=== PATIENT | male | born 1945 | race Caucasian/White ===

== ENCOUNTER 2017-08-27 07:16 | Inpatient (IN) | payer OTHER, MEDICARE ==
[~2017-08-27] VITALS: Ht 177.8 cm; Wt 117.8 kg
[2017-08-27] VITALS (8 sets, daily range): BP systolic 95–141; BP diastolic 47–91
[~2017-08-27 07:16] MED LIST: ASCO500C18 PO; DULO60CA63 PO; FURO-151 PO; GABA-531 PO; LEVO100T12 PO; LORA10CA9 PO; METO25TA3 PO; TAMS0.4C32 PO; TYL3 PO; WARF-67 PO
[2017-08-27] MEDS ORDERED: METOPROLOL TARTRATE 1 MG/ML 5ML VIAL IV ONE (07:32)
[2017-08-27 07:40] LABS: BASOPHILS % (AUTO) 0.1 % (0.0-5.0); EOSINOPHILS % (AUTO) 0.3 % (0.0-8.0); HEMATOCRIT 35.1 % (42-54); LYMPHOCYTES % (AUTO) 3.4 % (21.0-51.0); MEAN CORPUSCULAR HEMOGLOBIN 29.7 pg (27.0-33.0); MEAN CORPUSCULAR HGB CONC 33.7 g/dL (32.0-36.0); MEAN CORPUSCULAR VOLUME 88.3 fL (79-99); MONOCYTES % (AUTO) 5.7 % (3.0-13.0); NEUTROPHILS % (AUTO) 90.5 % (40.0-77.0); PLATELET COUNT (AUTO) 249 K/uL (130-400); RED BLOOD CELL COUNT(AUTO) 3.98 MIL/uL (4.50-6.20); RED CELL DISTRIBUTION WIDTH 16.1 % (11.0-15.5); WHITE BLOOD COUNT (AUTO) 20.6 K/uL (4.8-10.8)
[2017-08-27 07:56] LABS: INR 1.39 (0.85-1.15); PARTIAL THROMBOPLASTIN TIME 37.3 SEC (26.3-35.5); PROTHROMBIN TIME 14.5 SEC (9.6-11.6)
[2017-08-27 07:57] LABS: POTASSIUM 3.3 mmol/L (3.5-5.1)
[2017-08-27 08:13] LABS: B-TYPE NATRIURETIC PEPTIDE 144 pg/mL (0-100)
[2017-08-27 08:21] LABS: ALBUMIN 2.5 g/dL (3.5-5.0); TOTAL PROTEIN, SERUM 7.6 g/dL (6.0-8.3)
[2017-08-27] MEDS ORDERED: MEROPENEM 1 GM VIAL ONE (08:22)
[2017-08-27] MEDS ORDERED: SODIUM CHLORIDE 0.9% 1000ML 1,000 ML IV ONE (08:22)
[2017-08-27] MEDS ORDERED: SODIUM CHLORIDE 0.9% 1000ML 1,000 ML IV SCH (12:00)
[2017-08-27] MEDS ORDERED: ONDANSETRON HCL 4 MG/2 ML VIAL IVP PRN (12:45)
[2017-08-27] MEDS ORDERED: NITROGLYCERIN 0.4 MG SL TAB SL PRN (12:45)
[2017-08-27] MEDS ORDERED: CLONIDINE HCL 0.1 MG TABLET PO PRN (12:45)
[2017-08-27] MEDS ORDERED: MORPHINE SULFATE 4 MG/1ML SYG IVP PRN (12:45)
[2017-08-27] MEDS: MEROPENEM 500 MG VIAL IVP SCH ×3 (15:53→20:56)
[2017-08-27] MEDS: DIPHENHYDRAMINE HCL 25 MG CAPSULE PO PRN (15:54)
[2017-08-27] MEDS: INSULIN HUMULIN R 100 UNIT/ML 3ML SQ SCH ×2 (16:30→20:53)
[2017-08-27] MEDS ORDERED: DIPH25TA20 PO (16:56)
[2017-08-27] MEDS ORDERED: MULT-30 PO (16:56)
[2017-08-27] MEDS ORDERED: CICL6.6S8 TP (16:56)
[2017-08-27] MEDS: IPRATROPIUM/ALBUTEROL SULFATE 3 ML SOLUTION IH SCH ×2 (17:08→21:24)
[2017-08-27] MEDS: WARFARIN SODIUM 2 MG TAB PO SCH (17:59)
[2017-08-27 18:46] LABS: HEMATOCRIT 33.8 % (42-54); MEAN CORPUSCULAR HEMOGLOBIN 29.6 pg (27.0-33.0); MEAN CORPUSCULAR HGB CONC 33.7 g/dL (32.0-36.0); MEAN CORPUSCULAR VOLUME 87.7 fL (79-99); PLATELET COUNT (AUTO) 260 K/uL (130-400); RED BLOOD CELL COUNT(AUTO) 3.86 MIL/uL (4.50-6.20); RED CELL DISTRIBUTION WIDTH 15.8 % (11.0-15.5); WHITE BLOOD COUNT (AUTO) 17.8 K/uL (4.8-10.8)
[2017-08-27] MEDS: DULOXETINE HCL 30 MG CAP PO SCH (20:35)
[2017-08-27] MEDS: GABAPENTIN 300 MG CAPSULE PO SCH (20:35)
[2017-08-27] MEDS ORDERED: METOPROLOL TARTRATE 25 MG TAB PO SCH (21:00)
[2017-08-27] MEDS: ACETAMINOPHEN 325 MG TAB PO PRN (23:17)
[2017-08-27 23:52] LABS: ABG BASE EXCESS 0.3 mmol/L (-2.0-3.0); ABG HCO3 22.2 mmol/L (21.0-28.0); ABG OXYGEN SATURATION 97.8 % (95.0-99.0); ABG PCO2 29 mmHg (35-48)
[2017-08-28] VITALS (7 sets, daily range): BP systolic 90–110; BP diastolic 54–64
[2017-08-28 00:34] LABS: CREATINE KINASE MB 2.5 ng/mL (0.5-3.6); MYOGLOBIN 1574 ng/mL (10-92); TROPONIN I < 0.04 ng/mL (0.00-0.06)
[2017-08-28 00:47] LABS: CREATINE KINASE, TOTAL 3523 U/L (21-232)
[2017-08-28] MEDS: IPRATROPIUM 0.5 MG/2.5 ML INH IH SCH ×7 (01:22→22:19)
[2017-08-28] MEDS ORDERED: DiphenhydrAMINE HCL 50 MG/ML VIAL IV PRN (01:45)
[2017-08-28] MEDS ORDERED: LIDOCAINE HCL-MPF 1% 2ML VIAL IVP PRN (01:45)
[2017-08-28] MEDS ORDERED: VANCOMYCIN 1GM+NS 250ML 250 ML IV SCH (01:45)
[2017-08-28] MEDS ORDERED: POTASSIUM CHLORIDE 10% ELIXIR 20 MEQ/15 ML UDCUP PO PRN (01:45)
[2017-08-28] MEDS ORDERED: METHYLPREDNISOLONE SOD SUCC 125MG/2ML VIAL IV SCH (01:45)
[2017-08-28] MEDS ORDERED: FAMOTIDINE/PF 20 MG/2 ML VIAL IV SCH (01:45)
[2017-08-28] MEDS: METOPROLOL TARTRATE 1 MG/ML 5ML VIAL IV SCH ×2 (02:01→22:52)
[2017-08-28] MEDS ORDERED: METHYLPREDNISOLONE SOD SUCC 125MG/2ML VIAL ONE (02:47)
[2017-08-28] MEDS ORDERED: DiphenhydrAMINE HCL 50 MG/ML VIAL ONE (02:47)
[2017-08-28] MEDS ORDERED: VANCOMYCIN 1GM+NS 250ML 250 ML IV ONE (02:59)
[2017-08-28] MEDS ORDERED: FAMOTIDINE/PF 20 MG/2 ML VIAL IV ONE (03:00)
[2017-08-28] MEDS ORDERED: VANCOMYCIN PROTOCOL PER PHARMACY IV SCH (03:45)
[2017-08-28 05:01] LABS: BASOPHILS % (AUTO) 0.1 % (0.0-5.0); EOSINOPHILS % (AUTO) 0.1 % (0.0-8.0); HEMATOCRIT 31.1 % (42-54); LYMPHOCYTES % (AUTO) 3.5 % (21.0-51.0); MEAN CORPUSCULAR HEMOGLOBIN 30.3 pg (27.0-33.0); MEAN CORPUSCULAR HGB CONC 34.5 g/dL (32.0-36.0); MONOCYTES % (AUTO) 4.1 % (3.0-13.0); NEUTROPHILS % (AUTO) 92.2 % (40.0-77.0); PLATELET COUNT (AUTO) 236 K/uL (130-400); RED BLOOD CELL COUNT(AUTO) 3.54 MIL/uL (4.50-6.20); RED CELL DISTRIBUTION WIDTH 15.9 % (11.0-15.5); WHITE BLOOD COUNT (AUTO) 15.3 K/uL (4.8-10.8)
[2017-08-28 05:11] LABS: INR 1.34 (0.85-1.15)
[2017-08-28 05:15] LABS: APPEARANCE,URINE Clear (CLEAR); BILIRUBIN,URINE Negative (NEGATIVE); COLOR,URINE Yellow (YELLOW); GLUCOSE, URINE (UA) Negative (NEGATIVE); KETONES,URINE Trace mg/dL (NEGATIVE); LEUKOCYTE ESTERASE ,URINE Negative (NEGATIVE); NITRATE,URINE Negative (NEGATIVE); OCCULT BLOOD,URINE Large (NEGATIVE); PROTEIN,URINE 300 (NEGATIVE)
[2017-08-28 05:20] LABS: B-TYPE NATRIURETIC PEPTIDE 139 pg/mL (0-100)
[2017-08-28 05:24] LABS: BACTERIA,URINE None Seen /HPF (None Seen); MUCUS,URINE Few LPF (None Seen); SQUAMOUS EPITHELIAL CELL,UR Few /HPF (0-2); WBC,URINE None Seen /HPF (0-1)
[2017-08-28 05:25] LABS: CREATININE 1.5 mg/dL (0.5-1.5); POTASSIUM 3.2 mmol/L (3.5-5.1); THYROID STIMULATING HORMONE 3.85 uIU/mL (0.36-3.74)
[2017-08-28] MEDS: INSULIN HUMULIN R 100 UNIT/ML 3ML SQ SCH ×4 (05:48→22:51)
[2017-08-28] MEDS: LEVOTHYROXINE 100 MCG TABLET PO SCH (06:55)
[2017-08-28] MEDS ORDERED: SODIUM CHLORIDE 0.9% 1000ML 1,000 ML IV SCH (09:04)
[2017-08-28] MEDS: MULTIVITAMIN WITH MINERALS TABLET PO SCH (11:36)
[2017-08-28] MEDS: TAMSULOSIN HCL 0.4 MG CAP.ER.24H PO SCH (11:36)
[2017-08-28] MEDS: GABAPENTIN 300 MG CAPSULE PO SCH ×3 (11:36→22:39)
[2017-08-28] MEDS: LORATADINE 10 MG TABLET PO SCH (11:37)
[2017-08-28] MEDS: DULOXETINE HCL 30 MG CAP PO SCH ×2 (11:37→22:39)
[2017-08-28] MEDS: FUROSEMIDE 40 MG TABLET PO SCH (11:41)
[2017-08-28] MEDS: POTASSIUM CHLORIDE 20 MEQ ERTAB PO PRN ×2 (11:44→16:10)
[2017-08-28] MEDS: METOPROLOL TARTRATE 25 MG TAB PO SCH ×2 (11:45→22:39)
[2017-08-28] MEDS: ENOXAPARIN SODIUM 120 MG/0.8ML SQ SCH (14:50)
[2017-08-28] MEDS: WARFARIN SODIUM 2 MG TAB PO SCH (14:51)
[2017-08-28] MEDS ORDERED: PHARMACY COMMUNICATION MISC SCH (15:00)
[2017-08-28] MEDS ORDERED: COMPOUND PO MISCELLANEOUS 1 EACH MISC MISC PRN (15:15)
[2017-08-28] MEDS: MAG HYDROX/AL HYDROX/SIMETH 30 ML, LIDOCAINE HCL 2% VISCOUS 30 ML, DIPHENHYDRAMINE HCL ... PO PRN ×6 (15:56→22:41)
[2017-08-28] MEDS: VANCOMYCIN 1GM+NS 250ML 250 ML IV SCH (22:40)
[2017-08-28] MEDS: DIPHENHYDRAMINE HCL 25 MG CAPSULE PO PRN (22:45)
[2017-08-29] VITALS (19 sets, daily range): BP systolic 54–120; BP diastolic 46–84
[2017-08-29] MEDS: ENOXAPARIN SODIUM 120 MG/0.8ML SQ SCH ×3 (00:05→22:39)
[2017-08-29] MEDS: IPRATROPIUM 0.5 MG/2.5 ML INH IH SCH ×6 (01:12→21:17)
[2017-08-29 05:32] LABS: HEMATOCRIT 31.6 % (42-54); MEAN CORPUSCULAR HEMOGLOBIN 29.2 pg (27.0-33.0); MEAN CORPUSCULAR HGB CONC 32.7 g/dL (32.0-36.0); MEAN CORPUSCULAR VOLUME 89.2 fL (79-99); NUCLEATED RED BLOOD CELLS 0.2 % (0.0-0.19); PLATELET COUNT (AUTO) 245 K/uL (130-400); RED BLOOD CELL COUNT(AUTO) 3.54 MIL/uL (4.50-6.20); RED CELL DISTRIBUTION WIDTH 16.3 % (11.0-15.5); WHITE BLOOD COUNT (AUTO) 19.2 K/uL (4.8-10.8)
[2017-08-29 05:51] LABS: BAND NEUTROPHILS % (MANUAL) 18 % (0-2); LYMPHOCYTES % (MANUAL) 9 % (22-44); MAN.DIFF COMMENT-IMPRESSION MANUAL DIFFERENTIAL; MONOCYTES % (MANUAL) 11 % (2-9); PLATELET MORPHOLOGY COMMENT ADEQUATE; SEGMENTED NEUTROPHILS % 62 % (40-70)
[2017-08-29 05:54] LABS: CREATININE 1.4 mg/dL (0.5-1.5); MAGNESIUM 2.3 mg/dL (1.80-2.40); PHOSPHORUS 2.5 mg/dL (2.5-4.9); POTASSIUM 4.3 mmol/L (3.5-5.1)
[2017-08-29 06:00] LABS: B-TYPE NATRIURETIC PEPTIDE 240 pg/mL (0-100)
[2017-08-29] MEDS: INSULIN HUMULIN R 100 UNIT/ML 3ML SQ SCH ×4 (06:14→22:51)
[2017-08-29] MEDS: LEVOTHYROXINE 100 MCG TABLET PO SCH (06:35)
[2017-08-29 06:39] LABS: INR 1.8 (0.85-1.15); PARTIAL THROMBOPLASTIN TIME 46.1 SEC (26.3-35.5); PROTHROMBIN TIME 18.7 SEC (9.6-11.6)
[2017-08-29] MEDS: MULTIVITAMIN WITH MINERALS TABLET PO SCH (09:00)
[2017-08-29] MEDS: DULOXETINE HCL 30 MG CAP PO SCH ×2 (09:00→21:09)
[2017-08-29] MEDS: TAMSULOSIN HCL 0.4 MG CAP.ER.24H PO SCH (09:00)
[2017-08-29] MEDS: GABAPENTIN 300 MG CAPSULE PO SCH ×3 (09:00→21:09)
[2017-08-29] MEDS: LORATADINE 10 MG TABLET PO SCH (09:00)
[2017-08-29] MEDS: FUROSEMIDE 40 MG TABLET PO SCH (09:00)
[2017-08-29] MEDS: VANCOMYCIN 1GM+NS 250ML 250 ML IV SCH (10:50)
[2017-08-29] MEDS: METOPROLOL TARTRATE 25 MG TAB PO SCH ×2 (10:50→21:09)
[2017-08-29] MEDS ORDERED: KETAMINE HCL 100 MG/ML 5ML VIAL IJ ONE (13:06)
[2017-08-29] MEDS ORDERED: FENTANYL CITRATE PF 50 MCG/1 ML 2ML VIAL ONE (13:07)
[2017-08-29] MEDS ORDERED: MIDAZOLAM HCL 1 MG/ML 2ML VIAL ONE (13:07)
[2017-08-29] MEDS ORDERED: PROPOFOL 10 MG/ML 20ML VIAL IV ONE (13:08)
[2017-08-29] MEDS ORDERED: BUPIVACAINE/PF 0.5% 30ML VIAL ONE (13:12)
[2017-08-29] MEDS ORDERED: LIDOCAINE HCL 1% 20 ML VIAL ONE (13:12)
[2017-08-29] MEDS ORDERED: SODIUM CHLORIDE 0.9% 1000ML 1,000 ML IV SCH (18:45)
[2017-08-29 18:48] LABS: HEMATOCRIT 28.4 % (42-54)
[2017-08-29 22:35] LABS: HEMATOCRIT 25.7 % (42-54)
[2017-08-29] MEDS: VANCOMYCIN 750MG + NS 250 ML IV SCH ×2 (22:38)
[2017-08-30] MEDS: IPRATROPIUM 0.5 MG/2.5 ML INH IH SCH ×7 (01:21→21:24)
[2017-08-30 03:51] VITALS: BP 108/62
[2017-08-30 04:34] LABS: BASOPHILS % (AUTO) 0.2 % (0.0-5.0); EOSINOPHILS % (AUTO) 0.1 % (0.0-8.0); HEMATOCRIT 22.1 % (42-54); LYMPHOCYTES % (AUTO) 9.5 % (21.0-51.0); MEAN CORPUSCULAR HEMOGLOBIN 30.2 pg (27.0-33.0); MEAN CORPUSCULAR HGB CONC 34.1 g/dL (32.0-36.0); MEAN CORPUSCULAR VOLUME 88.7 fL (79-99); NEUTROPHILS % (AUTO) 84.2 % (40.0-77.0); NUCLEATED RED BLOOD CELLS 0.4 % (0.0-0.19); PLATELET COUNT (AUTO) 261 K/uL (130-400); RED BLOOD CELL COUNT(AUTO) 2.49 MIL/uL (4.50-6.20); RED CELL DISTRIBUTION WIDTH 16.4 % (11.0-15.5); WHITE BLOOD COUNT (AUTO) 25.8 K/uL (4.8-10.8)
[2017-08-30 04:47] LABS: CREATININE 1.1 mg/dL (0.5-1.5); POTASSIUM 3.5 mmol/L (3.5-5.1)
[2017-08-30 04:48] LABS: INR 2.54 (0.85-1.15); PARTIAL THROMBOPLASTIN TIME 51.4 SEC (26.3-35.5); PROTHROMBIN TIME 26.2 SEC (9.6-11.6)
[2017-08-30 05:23] LABS: B-TYPE NATRIURETIC PEPTIDE 147 pg/mL (0-100)
[2017-08-30] MEDS: VANCOMYCIN 750MG + NS 250 ML IV SCH ×6 (06:25→23:32)
[2017-08-30] MEDS: INSULIN HUMULIN R 100 UNIT/ML 3ML SQ SCH ×4 (06:55→21:00)
[2017-08-30 08:00] VITALS: BP 115/74
[2017-08-30] MEDS ORDERED: HALOPERIDOL LACTATE 5 MG/ML VIAL IV PRN (08:15)
[2017-08-30] MEDS ORDERED: HALOPERIDOL LACTATE 5 MG/ML VIAL ONE (08:21)
[2017-08-30 11:33] VITALS: BP 124/54
[2017-08-30] MEDS: GABAPENTIN 300 MG CAPSULE PO SCH ×3 (12:17→23:50)
[2017-08-30] MEDS: DULOXETINE HCL 30 MG CAP PO SCH ×2 (12:17→23:50)
[2017-08-30] MEDS: LORATADINE 10 MG TABLET PO SCH (12:18)
[2017-08-30] MEDS: METOPROLOL TARTRATE 25 MG TAB PO SCH ×2 (12:18→23:50)
[2017-08-30] MEDS: FUROSEMIDE 40 MG TABLET PO SCH (12:18)
[2017-08-30] MEDS: LEVOTHYROXINE 100 MCG TABLET PO SCH (12:18)
[2017-08-30] MEDS: TAMSULOSIN HCL 0.4 MG CAP.ER.24H PO SCH (12:18)
[2017-08-30] MEDS: MULTIVITAMIN WITH MINERALS TABLET PO SCH (12:18)
[2017-08-30 16:00] VITALS: BP 118/59
[2017-08-30] MEDS: WARFARIN SODIUM 2 MG TAB PO SCH ×2 (16:58→16:59)
[2017-08-30 20:00] VITALS: BP 116/68
[2017-08-30 23:30] VITALS: BP 117/55
[2017-08-31 03:39] VITALS: BP 112/56
[2017-08-31 04:32] LABS: INR 2.62 (0.85-1.15); PARTIAL THROMBOPLASTIN TIME 39.7 SEC (26.3-35.5)
[2017-08-31 04:34] LABS: HEMATOCRIT 21.3 % (42-54); MEAN CORPUSCULAR HEMOGLOBIN 29.3 pg (27.0-33.0); MEAN CORPUSCULAR HGB CONC 33.7 g/dL (32.0-36.0); MEAN CORPUSCULAR VOLUME 86.9 fL (79-99); PLATELET COUNT (AUTO) 296 K/uL (130-400); RED BLOOD CELL COUNT(AUTO) 2.45 MIL/uL (4.50-6.20); RED CELL DISTRIBUTION WIDTH 15.7 % (11.0-15.5); WHITE BLOOD COUNT (AUTO) 29.5 K/uL (4.8-10.8)
[2017-08-31 04:36] LABS: BAND NEUTROPHILS % (MANUAL) 20 % (0-2); LYMPHOCYTES % (MANUAL) 16 % (22-44); MAN.DIFF COMMENT-IMPRESSION MANUAL DIFFERENTIAL; MONOCYTES % (MANUAL) 5 % (2-9); SEGMENTED NEUTROPHILS % 59 % (40-70)
[2017-08-31 04:37] LABS: PLATELET MORPHOLOGY COMMENT SNAPPED
[2017-08-31 04:47] LABS: ALBUMIN 1.7 g/dL (3.5-5.0); BILIRUBIN,TOTAL 0.7 mg/dL (0.2-1.0); TOTAL PROTEIN, SERUM 5.9 g/dL (6.0-8.3)
[2017-08-31 04:54] LABS: POTASSIUM 2.9 mmol/L (3.5-5.1)
[2017-08-31] MEDS: POTASSIUM CHLORIDE 20MEQ/100ML 100 ML IV PRN ×2 (05:20→10:11)
[2017-08-31] MEDS: IPRATROPIUM 0.5 MG/2.5 ML INH IH SCH ×5 (06:09→22:27)
[2017-08-31] MEDS: LEVOTHYROXINE 100 MCG TABLET PO SCH (06:44)
[2017-08-31] MEDS: INSULIN HUMULIN R 100 UNIT/ML 3ML SQ SCH ×4 (06:46→21:00)
[2017-08-31] MEDS: ACETAMINOPHEN 325 MG TAB PO PRN (07:06)
[2017-08-31 08:00] VITALS: BP 129/58
[2017-08-31] MEDS: LORATADINE 10 MG TABLET PO SCH (10:07)
[2017-08-31] MEDS: MULTIVITAMIN WITH MINERALS TABLET PO SCH (10:07)
[2017-08-31] MEDS: DULOXETINE HCL 30 MG CAP PO SCH ×2 (10:07→21:57)
[2017-08-31] MEDS: METOPROLOL TARTRATE 25 MG TAB PO SCH ×2 (10:07→21:57)
[2017-08-31] MEDS: GABAPENTIN 300 MG CAPSULE PO SCH ×3 (10:07→21:57)
[2017-08-31] MEDS: FUROSEMIDE 40 MG TABLET PO SCH (10:07)
[2017-08-31] MEDS: TAMSULOSIN HCL 0.4 MG CAP.ER.24H PO SCH (10:07)
[2017-08-31 11:27] VITALS: BP 121/60
[2017-08-31 12:21] LABS: HEMATOCRIT 21.7 % (42-54)
[2017-08-31] MEDS ORDERED: PHARMACY COMMUNICATION MISC SCH (15:00)
[2017-08-31] MEDS ORDERED: MAG HYDROX/AL HYDROX/SIMETH 30 ML, LIDOCAINE HCL 2% VISCOUS 30 ML, DIPHENHYDRAMINE HCL ... PO PRN ×3 (15:30)
[2017-08-31 16:00] VITALS: BP 136/72
[2017-08-31] MEDS: WARFARIN SODIUM 2 MG TAB PO SCH (18:06)
[2017-08-31 19:10] VITALS: BP 114/54
[2017-08-31] MEDS ORDERED: VANCOMYCIN 1.25 GM in SODIUM CHLORIDE 0.9% 250 ML IV SCH (22:00)
[2017-09-01] VITALS (7 sets, daily range): BP systolic 103–132; BP diastolic 56–62
[2017-09-01] MEDS: IPRATROPIUM 0.5 MG/2.5 ML INH IH SCH ×5 (01:11→21:15)
[2017-09-01] MEDS: ACETAMINOPHEN 325 MG TAB PO PRN ×2 (02:01→09:58)
[2017-09-01] MEDS: VANCOMYCIN 750MG + NS 250 ML IV SCH ×6 (06:14→23:58)
[2017-09-01] MEDS: INSULIN HUMULIN R 100 UNIT/ML 3ML SQ SCH ×4 (07:30→21:00)
[2017-09-01] MEDS: LEVOTHYROXINE 100 MCG TABLET PO SCH (08:03)
[2017-09-01] MEDS: TAMSULOSIN HCL 0.4 MG CAP.ER.24H PO SCH (09:51)
[2017-09-01] MEDS: DULOXETINE HCL 30 MG CAP PO SCH (09:51)
[2017-09-01] MEDS: MULTIVITAMIN WITH MINERALS TABLET PO SCH (09:51)
[2017-09-01] MEDS: GABAPENTIN 300 MG CAPSULE PO SCH ×3 (09:51→23:59)
[2017-09-01] MEDS: FUROSEMIDE 40 MG TABLET PO SCH (09:51)
[2017-09-01] MEDS: LORATADINE 10 MG TABLET PO SCH (09:52)
[2017-09-01] MEDS: METOPROLOL TARTRATE 25 MG TAB PO SCH ×2 (09:53→21:00)
[2017-09-01] MEDS ORDERED: PHARMACY COMMUNICATION MISC SCH ×2 (12:15→14:45)
[2017-09-01] MEDS ORDERED: BIOTENE MOISTURIZING SPRAY 44.3ML SPRAY MM PRN (12:30)
[2017-09-01] MEDS: POTASSIUM CHLORIDE 20 MEQ ERTAB PO PRN ×2 (13:03→17:23)
[2017-09-01] MEDS ORDERED: COMPOUND PO MISCELLANEOUS 1 EACH MISC MISC PRN (15:15)
[2017-09-01] MEDS: WARFARIN SODIUM 2 MG TAB PO SCH (17:22)
[2017-09-02] MEDS: ACETAMINOPHEN 325 MG TAB PO PRN
[2017-09-02] MEDS: DULOXETINE HCL 30 MG CAP PO SCH ×3 (00:01→22:01)
[2017-09-02 03:00] VITALS: BP 126/59
[2017-09-02] MEDS: ACETAMINOPHEN-CODEINE 300/30MG TAB PO PRN ×2 (04:39→17:28)
[2017-09-02] MEDS: IPRATROPIUM 0.5 MG/2.5 ML INH IH SCH ×5 (06:00→21:48)
[2017-09-02] MEDS: INSULIN HUMULIN R 100 UNIT/ML 3ML SQ SCH ×4 (07:30→21:00)
[2017-09-02 08:00] VITALS: BP 109/61
[2017-09-02] MEDS: LEVOTHYROXINE 100 MCG TABLET PO SCH (08:14)
[2017-09-02] MEDS: VANCOMYCIN 750MG + NS 250 ML IV SCH ×6 (08:14→22:00)
[2017-09-02] MEDS ORDERED: COMPOUND IV MISC 1 EACH IVSOLN MISC PRN (08:45)
[2017-09-02] MEDS ORDERED: IRON SUCROSE COMPLEX 100 MG in SODIUM CHLORIDE 0.9% 50 ML IV SCH (09:00)
[2017-09-02 09:56] LABS: RETICULOCYTE % (AUTO) 2.99 % (0.42-2.23)
[2017-09-02 10:03] LABS: POTASSIUM 3.5 mmol/L (3.5-5.1)
[2017-09-02 10:04] LABS: HEMATOCRIT 21.4 % (42-54); MEAN CORPUSCULAR HEMOGLOBIN 30.1 pg (27.0-33.0); MEAN CORPUSCULAR HGB CONC 34.2 g/dL (32.0-36.0); NUCLEATED RED BLOOD CELLS 0.1 % (0.0-0.19); PLATELET COUNT (AUTO) 345 K/uL (130-400); RED BLOOD CELL COUNT(AUTO) 2.44 MIL/uL (4.50-6.20); RED CELL DISTRIBUTION WIDTH 16.1 % (11.0-15.5)
[2017-09-02 10:08] LABS: INR 2.48 (0.85-1.15); PARTIAL THROMBOPLASTIN TIME 38.2 SEC (26.3-35.5); PROTHROMBIN TIME 25.6 SEC (9.6-11.6)
[2017-09-02 10:19] LABS: WHITE BLOOD COUNT (AUTO) 33.7 K/uL (4.8-10.8)
[2017-09-02 10:25] LABS: % IRON SATURATION 18.5 % (30-44); FERRITIN 354 ng/mL (30-400); IRON, SERUM 28 mcg/dL (65-175); TOTAL IRON BINDING CAPACITY 151 mcg/dL (250-450)
[2017-09-02 10:42] LABS: BAND NEUTROPHILS % (MANUAL) 7 % (0-2); EOSINOPHILS % (MANUAL) 1 % (1-6); LYMPHOCYTES % (MANUAL) 8 % (22-44); MAN.DIFF COMMENT-IMPRESSION MANUAL DIFFERENTIAL; SEGMENTED NEUTROPHILS % 84 % (40-70)
[2017-09-02 10:44] LABS: PLATELET MORPHOLOGY COMMENT ADEQUATE
[2017-09-02 11:00] VITALS: BP 116/67
[2017-09-02] MEDS: POTASSIUM CHLORIDE 20 MEQ ERTAB PO PRN ×3 (11:43→22:00)
[2017-09-02] MEDS: TAMSULOSIN HCL 0.4 MG CAP.ER.24H PO SCH (11:47)
[2017-09-02] MEDS: METOPROLOL TARTRATE 25 MG TAB PO SCH ×2 (11:47→22:09)
[2017-09-02] MEDS: GABAPENTIN 300 MG CAPSULE PO SCH ×3 (11:47→22:01)
[2017-09-02] MEDS: MULTIVITAMIN WITH MINERALS TABLET PO SCH (11:48)
[2017-09-02] MEDS: FUROSEMIDE 40 MG TABLET PO SCH (11:49)
[2017-09-02] MEDS: LORATADINE 10 MG TABLET PO SCH (11:49)
[2017-09-02] MEDS: WARFARIN SODIUM 2 MG TAB PO SCH (15:32)
[2017-09-02 16:00] VITALS: BP 123/56
[2017-09-02 19:45] VITALS: BP 98/55
[2017-09-02] MEDS: LACTULOSE 20 GM/30 ML UDCUP PO PRN (22:40)
[2017-09-02 23:00] VITALS: BP 108/56
[2017-09-03 03:15] VITALS: BP 116/64
[2017-09-03 04:38] LABS: MEAN CORPUSCULAR HEMOGLOBIN 29.6 pg (27.0-33.0); MEAN CORPUSCULAR HGB CONC 33.7 g/dL (32.0-36.0); MEAN CORPUSCULAR VOLUME 87.6 fL (79-99); NUCLEATED RED BLOOD CELLS 0.2 % (0.0-0.19); PLATELET COUNT (AUTO) 381 K/uL (130-400); RED BLOOD CELL COUNT(AUTO) 2.32 MIL/uL (4.50-6.20); RED CELL DISTRIBUTION WIDTH 16.1 % (11.0-15.5); WHITE BLOOD COUNT (AUTO) 27.6 K/uL (4.8-10.8)
[2017-09-03 04:41] LABS: HEMATOCRIT 20.3 % (42-54)
[2017-09-03 04:42] LABS: CREATININE 0.9 mg/dL (0.5-1.5); POTASSIUM 3.5 mmol/L (3.5-5.1)
[2017-09-03 04:43] LABS: INR 3.04 (0.85-1.15); PARTIAL THROMBOPLASTIN TIME 41.6 SEC (26.3-35.5); PROTHROMBIN TIME 31.2 SEC (9.6-11.6)
[2017-09-03] MEDS: VANCOMYCIN 750MG + NS 250 ML IV SCH ×6 (05:28→21:39)
[2017-09-03] MEDS: INSULIN HUMULIN R 100 UNIT/ML 3ML SQ SCH ×4 (06:00→21:00)
[2017-09-03 06:02] LABS: HEMATOCRIT 21.2 % (42-54)
[2017-09-03] MEDS: LEVOTHYROXINE 100 MCG TABLET PO SCH (06:26)
[2017-09-03] MEDS: IPRATROPIUM 0.5 MG/2.5 ML INH IH SCH ×3 (08:09→21:22)
[2017-09-03] MEDS: POLYETHYLENE GLYCOL 3350 17 GM POWD.PACK PO SCH ×2 (09:00→11:24)
[2017-09-03 10:14] VITALS: BP 108/66
[2017-09-03] MEDS: DULOXETINE HCL 30 MG CAP PO SCH ×2 (11:21→21:34)
[2017-09-03] MEDS: MULTIVITAMIN WITH MINERALS TABLET PO SCH (11:22)
[2017-09-03] MEDS: METOPROLOL TARTRATE 25 MG TAB PO SCH ×2 (11:22→21:34)
[2017-09-03] MEDS: GABAPENTIN 300 MG CAPSULE PO SCH ×3 (11:22→21:34)
[2017-09-03] MEDS: LORATADINE 10 MG TABLET PO SCH (11:23)
[2017-09-03] MEDS: FUROSEMIDE 40 MG TABLET PO SCH (11:23)
[2017-09-03] MEDS: TAMSULOSIN HCL 0.4 MG CAP.ER.24H PO SCH (11:24)
[2017-09-03] MEDS: IRON SUCROSE COMPLEX 100 MG in SODIUM CHLORIDE 0.9% 50 ML IV SCH (11:36)
[2017-09-03 12:00] VITALS: BP 92/56
[2017-09-03 16:00] VITALS: BP 122/64
[2017-09-03] MEDS: ACETAMINOPHEN 325 MG TAB PO PRN (18:10)
[2017-09-03 19:17] VITALS: BP 106/60
[2017-09-03 23:31] VITALS: BP 98/52
[2017-09-04] VITALS: BP 112/55
[2017-09-04 04:21] VITALS: BP 130/59
[2017-09-04 04:40] LABS: HEMATOCRIT 23.7 % (42-54); MEAN CORPUSCULAR HEMOGLOBIN 29.3 pg (27.0-33.0); MEAN CORPUSCULAR HGB CONC 34.4 g/dL (32.0-36.0); MEAN CORPUSCULAR VOLUME 85.1 fL (79-99); PLATELET COUNT (AUTO) 351 K/uL (130-400); RED BLOOD CELL COUNT(AUTO) 2.78 MIL/uL (4.50-6.20); RED CELL DISTRIBUTION WIDTH 16.2 % (11.0-15.5); WHITE BLOOD COUNT (AUTO) 25.2 K/uL (4.8-10.8)
[2017-09-04 04:46] LABS: INR 2.43 (0.85-1.15); PARTIAL THROMBOPLASTIN TIME 42.3 SEC (26.3-35.5); PROTHROMBIN TIME 25.1 SEC (9.6-11.6)
[2017-09-04 04:51] LABS: CREATININE 0.9 mg/dL (0.5-1.5); POTASSIUM 3.2 mmol/L (3.5-5.1)
[2017-09-04] MEDS: IPRATROPIUM 0.5 MG/2.5 ML INH IH SCH ×3 (06:02→22:08)
[2017-09-04] MEDS: VANCOMYCIN 750MG + NS 250 ML IV SCH ×6 (06:09→21:27)
[2017-09-04] MEDS: LEVOTHYROXINE 100 MCG TABLET PO SCH (06:09)
[2017-09-04] MEDS: POTASSIUM CHLORIDE 20 MEQ ERTAB PO PRN ×3 (06:10→12:40)
[2017-09-04] MEDS: INSULIN HUMULIN R 100 UNIT/ML 3ML SQ SCH ×4 (06:10→21:00)
[2017-09-04 07:55] VITALS: BP 119/65
[2017-09-04] MEDS: CICLOPIROX TP SCH ×2 (09:00→21:00)
[2017-09-04] MEDS: POLYETHYLENE GLYCOL 3350 17 GM POWD.PACK PO SCH (10:31)
[2017-09-04] MEDS: ACETAMINOPHEN-CODEINE 300/30MG TAB PO PRN (10:31)
[2017-09-04] MEDS: DULOXETINE HCL 30 MG CAP PO SCH ×2 (10:31→21:20)
[2017-09-04] MEDS: TAMSULOSIN HCL 0.4 MG CAP.ER.24H PO SCH (10:32)
[2017-09-04] MEDS: LORATADINE 10 MG TABLET PO SCH (10:32)
[2017-09-04] MEDS: GABAPENTIN 300 MG CAPSULE PO SCH ×3 (10:32→21:19)
[2017-09-04] MEDS: FUROSEMIDE 40 MG TABLET PO SCH (10:32)
[2017-09-04] MEDS: MULTIVITAMIN WITH MINERALS TABLET PO SCH (10:32)
[2017-09-04] MEDS: METOPROLOL TARTRATE 25 MG TAB PO SCH ×2 (10:33→21:19)
[2017-09-04] MEDS: POTASSIUM CHLORIDE 10 MEQ/TAB.SA PO SCH (10:33)
[2017-09-04 10:56] VITALS: BP 117/53
[2017-09-04] MEDS: MAG HYDROX/AL HYDROX/SIMETH 30 ML, LIDOCAINE HCL 2% VISCOUS 30 ML, DIPHENHYDRAMINE HCL ... PO PRN ×6 (12:39→22:30)
[2017-09-04] MEDS: IRON SUCROSE COMPLEX 100 MG in SODIUM CHLORIDE 0.9% 50 ML IV SCH (12:40)
[2017-09-04 16:00] VITALS: BP 104/72
[2017-09-04] MEDS: WARFARIN SODIUM 2 MG TAB PO SCH (17:06)
[2017-09-04 19:00] VITALS: BP 121/57
[2017-09-05] VITALS (7 sets, daily range): BP systolic 108–126; BP diastolic 55–70
[2017-09-05 04:37] LABS: MEAN CORPUSCULAR HEMOGLOBIN 30.6 pg (27.0-33.0); MEAN CORPUSCULAR HGB CONC 35.4 g/dL (32.0-36.0); MEAN CORPUSCULAR VOLUME 86.6 fL (79-99); PLATELET COUNT (AUTO) 337 K/uL (130-400); RED BLOOD CELL COUNT(AUTO) 2.54 MIL/uL (4.50-6.20); RED CELL DISTRIBUTION WIDTH 16.4 % (11.0-15.5)
[2017-09-05 04:54] LABS: CREATININE 0.9 mg/dL (0.5-1.5); POTASSIUM 3.6 mmol/L (3.5-5.1)
[2017-09-05] MEDS: LEVOTHYROXINE 100 MCG TABLET PO SCH (05:48)
[2017-09-05] MEDS: VANCOMYCIN 750MG + NS 250 ML IV SCH ×4 (05:48→16:02)
[2017-09-05] MEDS: INSULIN HUMULIN R 100 UNIT/ML 3ML SQ SCH ×4 (05:51→21:00)
[2017-09-05] MEDS: IPRATROPIUM 0.5 MG/2.5 ML INH IH SCH ×3 (06:11→21:58)
[2017-09-05] MEDS: CICLOPIROX TP SCH ×2 (09:00→21:00)
[2017-09-05] MEDS: POLYETHYLENE GLYCOL 3350 17 GM POWD.PACK PO SCH (10:21)
[2017-09-05] MEDS: LORATADINE 10 MG TABLET PO SCH (10:22)
[2017-09-05] MEDS: MULTIVITAMIN WITH MINERALS TABLET PO SCH (10:23)
[2017-09-05] MEDS: FUROSEMIDE 40 MG TABLET PO SCH (10:23)
[2017-09-05] MEDS: TAMSULOSIN HCL 0.4 MG CAP.ER.24H PO SCH (10:23)
[2017-09-05] MEDS: GABAPENTIN 300 MG CAPSULE PO SCH ×3 (10:24→21:25)
[2017-09-05] MEDS: POTASSIUM CHLORIDE 10 MEQ/TAB.SA PO SCH (10:24)
[2017-09-05] MEDS: DULOXETINE HCL 30 MG CAP PO SCH ×2 (10:24→21:25)
[2017-09-05] MEDS: METOPROLOL TARTRATE 25 MG TAB PO SCH ×2 (10:25→21:25)
[2017-09-05] MEDS: POTASSIUM CHLORIDE 20 MEQ ERTAB PO PRN (10:25)
[2017-09-05] MEDS: ACETAMINOPHEN-CODEINE 300/30MG TAB PO PRN (10:28)
[2017-09-05] MEDS: MAG HYDROX/AL HYDROX/SIMETH 30 ML, LIDOCAINE HCL 2% VISCOUS 30 ML, DIPHENHYDRAMINE HCL ... PO PRN ×3 (10:31)
[2017-09-05] MEDS: IRON SUCROSE COMPLEX 100 MG in SODIUM CHLORIDE 0.9% 50 ML IV SCH (13:59)
[2017-09-05] MEDS: WARFARIN SODIUM 2 MG TAB PO SCH (16:02)
[2017-09-05] MEDS ORDERED: METOPROLOL TARTRATE 1 MG/ML 5ML VIAL IV SCH (20:00)
[2017-09-05] MEDS: VANCOMYCIN 1.25 GM in SODIUM CHLORIDE 0.9% 250 ML IV SCH (21:25)
[2017-09-06 03:32] VITALS: BP 100/67
[2017-09-06 04:38] LABS: MEAN CORPUSCULAR HEMOGLOBIN 29.3 pg (27.0-33.0); MEAN CORPUSCULAR VOLUME 86.3 fL (79-99); NUCLEATED RED BLOOD CELLS 0.1 % (0.0-0.19); PLATELET COUNT (AUTO) 397 K/uL (130-400); RED BLOOD CELL COUNT(AUTO) 2.66 MIL/uL (4.50-6.20); RED CELL DISTRIBUTION WIDTH 16.2 % (11.0-15.5); WHITE BLOOD COUNT (AUTO) 17.9 K/uL (4.8-10.8)
[2017-09-06 04:42] LABS: INR 3.08 (0.85-1.15); PARTIAL THROMBOPLASTIN TIME 46.4 SEC (26.3-35.5); PROTHROMBIN TIME 31.6 SEC (9.6-11.6)
[2017-09-06 05:01] LABS: CREATININE 0.9 mg/dL (0.5-1.5); POTASSIUM 3.8 mmol/L (3.5-5.1)
[2017-09-06] MEDS: INSULIN HUMULIN R 100 UNIT/ML 3ML SQ SCH ×4 (06:10→21:00)
[2017-09-06] MEDS: LEVOTHYROXINE 100 MCG TABLET PO SCH (06:10)
[2017-09-06] MEDS: IPRATROPIUM 0.5 MG/2.5 ML INH IH SCH ×3 (06:48→22:35)
[2017-09-06 07:00] VITALS: BP 131/63
[2017-09-06] MEDS: CICLOPIROX TP SCH ×2 (09:00→21:00)
[2017-09-06 11:00] VITALS: BP 133/64
[2017-09-06] MEDS ORDERED: COMPOUND IV REFRIGERATED 1 EACH IVSOLN MISC PRN (11:45)
[2017-09-06] MEDS: ACETAMINOPHEN-CODEINE 300/30MG TAB PO PRN (12:20)
[2017-09-06] MEDS: POLYETHYLENE GLYCOL 3350 17 GM POWD.PACK PO SCH (12:21)
[2017-09-06] MEDS: POTASSIUM CHLORIDE 10 MEQ/TAB.SA PO SCH (12:21)
[2017-09-06] MEDS: TAMSULOSIN HCL 0.4 MG CAP.ER.24H PO SCH (12:21)
[2017-09-06] MEDS: DULOXETINE HCL 30 MG CAP PO SCH ×2 (12:22→23:05)
[2017-09-06] MEDS: LORATADINE 10 MG TABLET PO SCH (12:23)
[2017-09-06] MEDS: MULTIVITAMIN WITH MINERALS TABLET PO SCH (12:23)
[2017-09-06] MEDS: FUROSEMIDE 40 MG TABLET PO SCH (12:23)
[2017-09-06] MEDS: METOPROLOL TARTRATE 25 MG TAB PO SCH ×2 (12:25→23:06)
[2017-09-06] MEDS: IRON SUCROSE COMPLEX 100 MG in SODIUM CHLORIDE 0.9% 50 ML IV SCH (12:32)
[2017-09-06] MEDS: GABAPENTIN 300 MG CAPSULE PO SCH ×3 (12:32→23:06)
[2017-09-06] MEDS: VANCOMYCIN 1.25 GM in SODIUM CHLORIDE 0.9% 250 ML IV SCH ×2 (12:36→23:16)
[2017-09-06 14:56] LABS: INR 2.81 (0.85-1.15); PROTHROMBIN TIME 28.9 SEC (9.6-11.6)
[2017-09-06] MEDS ORDERED: PHARMACY COMMUNICATION MISC SCH (15:15)
[2017-09-06 16:00] VITALS: BP 119/63
[2017-09-06] MEDS: WARFARIN SODIUM 2 MG TAB PO SCH (16:00)
[2017-09-06] MEDS: GENTAMICIN SULFATE 140 MG in SODIUM CHLORIDE 0.9% 100 ML IV SCH (18:45)
[2017-09-06 19:00] VITALS: BP 106/63
[2017-09-06] MEDS: LACTULOSE 20 GM/30 ML UDCUP PO PRN (19:01)
[2017-09-07] VITALS (7 sets, daily range): BP systolic 118–137; BP diastolic 58–71
[2017-09-07] MEDS: GENTAMICIN SULFATE 140 MG in SODIUM CHLORIDE 0.9% 100 ML IV SCH ×3 (01:33→17:37)
[2017-09-07 06:22] LABS: INR 2.46 (0.85-1.15); PROTHROMBIN TIME 25.4 SEC (9.6-11.6)
[2017-09-07] MEDS: INSULIN HUMULIN R 100 UNIT/ML 3ML SQ SCH ×4 (06:55→21:00)
[2017-09-07] MEDS: IPRATROPIUM 0.5 MG/2.5 ML INH IH SCH ×3 (06:56→22:24)
[2017-09-07] MEDS: LEVOTHYROXINE 100 MCG TABLET PO SCH (06:57)
[2017-09-07] MEDS: VANCOMYCIN 1.25 GM in SODIUM CHLORIDE 0.9% 250 ML IV SCH ×2 (08:00→21:51)
[2017-09-07] MEDS: DULOXETINE HCL 30 MG CAP PO SCH ×2 (09:05→21:51)
[2017-09-07] MEDS: TAMSULOSIN HCL 0.4 MG CAP.ER.24H PO SCH (09:05)
[2017-09-07] MEDS: POTASSIUM CHLORIDE 10 MEQ/TAB.SA PO SCH (09:05)
[2017-09-07] MEDS: LORATADINE 10 MG TABLET PO SCH (09:06)
[2017-09-07] MEDS: POLYETHYLENE GLYCOL 3350 17 GM POWD.PACK PO SCH (09:06)
[2017-09-07] MEDS: FUROSEMIDE 40 MG TABLET PO SCH (09:06)
[2017-09-07] MEDS: GABAPENTIN 300 MG CAPSULE PO SCH ×3 (09:06→21:51)
[2017-09-07] MEDS: METOPROLOL TARTRATE 25 MG TAB PO SCH ×2 (09:06→21:51)
[2017-09-07] MEDS: MULTIVITAMIN WITH MINERALS TABLET PO SCH (09:06)
[2017-09-07] MEDS: IRON SUCROSE COMPLEX 100 MG in SODIUM CHLORIDE 0.9% 50 ML IV SCH (11:00)
[2017-09-07] MEDS: WARFARIN SODIUM 2 MG TAB PO SCH (16:00)
[2017-09-07] MEDS: CICLOPIROX TP SCH (21:00)
[2017-09-08 04:31] VITALS: BP 141/67
[2017-09-08] MEDS: IPRATROPIUM 0.5 MG/2.5 ML INH IH SCH ×3 (06:00→22:32)
[2017-09-08] MEDS: INSULIN HUMULIN R 100 UNIT/ML 3ML SQ SCH ×4 (06:23→21:00)
[2017-09-08] MEDS: LEVOTHYROXINE 100 MCG TABLET PO SCH (06:25)
[2017-09-08 07:40] LABS: HEMATOCRIT 24.7 % (42-54); MEAN CORPUSCULAR HEMOGLOBIN 30.5 pg (27.0-33.0); MEAN CORPUSCULAR HGB CONC 34.4 g/dL (32.0-36.0); MEAN CORPUSCULAR VOLUME 88.7 fL (79-99); PLATELET COUNT (AUTO) 463 K/uL (130-400); RED BLOOD CELL COUNT(AUTO) 2.78 MIL/uL (4.50-6.20); WHITE BLOOD COUNT (AUTO) 14.7 K/uL (4.8-10.8)
[2017-09-08 07:51] LABS: INR 1.75 (0.85-1.15); PROTHROMBIN TIME 18.2 SEC (9.6-11.6)
[2017-09-08] MEDS: GENTAMICIN SULFATE 140 MG in SODIUM CHLORIDE 0.9% 100 ML IV SCH ×3 (08:00)
[2017-09-08 08:02] LABS: CREATININE 0.8 mg/dL (0.5-1.5); POTASSIUM 3.6 mmol/L (3.5-5.1)
[2017-09-08] MEDS: CICLOPIROX TP SCH ×2 (09:00→21:00)
[2017-09-08 09:26] VITALS: BP 126/62
[2017-09-08] MEDS: FUROSEMIDE 40 MG TABLET PO SCH (11:03)
[2017-09-08] MEDS: TAMSULOSIN HCL 0.4 MG CAP.ER.24H PO SCH (11:03)
[2017-09-08] MEDS: GABAPENTIN 300 MG CAPSULE PO SCH ×3 (11:03→22:22)
[2017-09-08] MEDS: DULOXETINE HCL 30 MG CAP PO SCH ×2 (11:04→22:23)
[2017-09-08] MEDS: POTASSIUM CHLORIDE 10 MEQ/TAB.SA PO SCH (11:04)
[2017-09-08] MEDS: METOPROLOL TARTRATE 25 MG TAB PO SCH ×2 (11:05→22:22)
[2017-09-08] MEDS: LORATADINE 10 MG TABLET PO SCH (11:05)
[2017-09-08] MEDS: MULTIVITAMIN WITH MINERALS TABLET PO SCH (11:05)
[2017-09-08] MEDS: POLYETHYLENE GLYCOL 3350 17 GM POWD.PACK PO SCH (11:21)
[2017-09-08] MEDS: IRON SUCROSE COMPLEX 100 MG in SODIUM CHLORIDE 0.9% 50 ML IV SCH (11:21)
[2017-09-08] MEDS: VANCOMYCIN 1.25 GM in SODIUM CHLORIDE 0.9% 250 ML IV SCH ×2 (11:21→22:24)
[2017-09-08 12:00] VITALS: BP 140/66
[2017-09-08 15:52] VITALS: BP 137/69
[2017-09-08] MEDS ORDERED: WARFARIN SODIUM 5 MG TAB PO SCH (16:00)
[2017-09-08] MEDS: GENTAMICIN 120 MG IN 100ML NS 100 ML IV SCH (16:43)
[2017-09-08 19:10] VITALS: BP 141/91
[2017-09-08 20:00] VITALS: BP 130/59
[2017-09-09] MEDS: GENTAMICIN 120 MG IN 100ML NS 100 ML IV SCH ×2 (00:24→09:41)
[2017-09-09 03:33] VITALS: BP 128/60
[2017-09-09] MEDS: INSULIN HUMULIN R 100 UNIT/ML 3ML SQ SCH ×2 (06:11→11:30)
[2017-09-09] MEDS: IPRATROPIUM 0.5 MG/2.5 ML INH IH SCH ×2 (06:54→14:07)
[2017-09-09 07:32] LABS: INR 2.15 (0.85-1.15); PARTIAL THROMBOPLASTIN TIME 39.4 SEC (26.3-35.5); PROTHROMBIN TIME 22.2 SEC (9.6-11.6)
[2017-09-09 08:00] VITALS: BP 141/61
[2017-09-09] MEDS: ACETAMINOPHEN-CODEINE 300/30MG TAB PO PRN (08:46)
[2017-09-09] MEDS: CICLOPIROX TP SCH (09:00)
[2017-09-09] MEDS: VANCOMYCIN 1.25 GM in SODIUM CHLORIDE 0.9% 250 ML IV SCH (09:41)
[2017-09-09] MEDS: IRON SUCROSE COMPLEX 100 MG in SODIUM CHLORIDE 0.9% 50 ML IV SCH (09:41)
[2017-09-09] MEDS: LORATADINE 10 MG TABLET PO SCH (09:42)
[2017-09-09] MEDS: TAMSULOSIN HCL 0.4 MG CAP.ER.24H PO SCH (09:42)
[2017-09-09] MEDS: DULOXETINE HCL 30 MG CAP PO SCH (09:42)
[2017-09-09] MEDS: FUROSEMIDE 40 MG TABLET PO SCH (09:43)
[2017-09-09] MEDS: POTASSIUM CHLORIDE 10 MEQ/TAB.SA PO SCH (09:43)
[2017-09-09] MEDS: METOPROLOL TARTRATE 25 MG TAB PO SCH (09:43)
[2017-09-09] MEDS: POLYETHYLENE GLYCOL 3350 17 GM POWD.PACK PO SCH (09:44)
[2017-09-09] MEDS: GABAPENTIN 300 MG CAPSULE PO SCH ×2 (09:44→14:00)
[2017-09-09] MEDS: MULTIVITAMIN WITH MINERALS TABLET PO SCH (09:44)
[2017-09-09] MEDS: LEVOTHYROXINE 100 MCG TABLET PO SCH (09:49)
[2017-09-09 11:00] VITALS: BP 125/65
[2017-09-09] MEDS ORDERED: MAG HYDROX/AL HYDROX/SIMETH 30 ML, LIDOCAINE HCL 2% VISCOUS 30 ML, DIPHENHYDRAMINE HCL ... PO PRN ×3 (11:48)
[2017-09-09 16:00] VITALS: BP 118/96
[2017-09-09] MEDS ORDERED: WARFARIN SODIUM 2 MG TAB PO SCH (16:00)
== END 2017-09-09 19:30 | DRG 853 ==
LOC: EDH 07:16 → OBSVTOIN 10:45 → EDHIP 10:45 → 4CH 11:34 → 3BH 08-29 18:52 → 3CH 09-06 04:53
PROVIDERS: ADMIT Family Medicine; ATTEND Family Medicine
PROC: 0JBR0ZZ Excision of Left Foot Subcutaneous Tissue and Fascia, Open Approach (ICD-10-PCS; principal; 2017-08-28)
PROC: 0QBP0ZZ Excision of Left Metatarsal, Open Approach (ICD-10-PCS; 2017-08-28)
PROC: 0Y6N0Z5 Detachment at Left Foot, Complete 2nd Ray, Open Approach (ICD-10-PCS; 2017-08-28)
PROC: 02HV33Z Insertion of Infusion Device into Superior Vena Cava, Percutaneous Approach (ICD-10-PCS; 2017-09-09)
PROC: 30233N1 Transfusion of Nonautologous Red Blood Cells into Peripheral Vein, Percutaneous Approach (ICD-10-PCS; 2017-09-09)
DX: A41.9 Sepsis, unspecified organism (principal); M72.6 Necrotizing fasciitis; G93.40 Encephalopathy, unspecified; N17.9 Acute kidney failure, unspecified; I82.402 Acute embolism and thrombosis of unspecified deep veins of left lower extremity; E11.22 Type 2 diabetes mellitus with diabetic chronic kidney disease; E66.01 Morbid (severe) obesity due to excess calories; L03.116 Cellulitis of left lower limb; E11.52 Type 2 diabetes mellitus with diabetic peripheral angiopathy with gangrene; M62.82 Rhabdomyolysis; L02.612 Cutaneous abscess of left foot; I82.432 Acute embolism and thrombosis of left popliteal vein; M86.9 Osteomyelitis, unspecified; W06.XXXA Fall from bed, initial encounter; E11.42 Type 2 diabetes mellitus with diabetic polyneuropathy; E11.621 Type 2 diabetes mellitus with foot ulcer; L97.529 Non-pressure chronic ulcer of other part of left foot with unspecified severity; E11.69 Type 2 diabetes mellitus with other specified complication; D64.9 Anemia, unspecified; E87.6 Hypokalemia; B95.62 Methicillin resistant Staphylococcus aureus infection as the cause of diseases classified elsewhere; B96.89 Other specified bacterial agents as the cause of diseases classified elsewhere; E03.9 Hypothyroidism, unspecified; E11.622 Type 2 diabetes mellitus with other skin ulcer; E78.5 Hyperlipidemia, unspecified; F32.9 Major depressive disorder, single episode, unspecified; G89.4 Chronic pain syndrome; I12.9 Hypertensive chronic kidney disease with stage 1 through stage 4 chronic kidney disease, or unspecified chronic kidney disease; J44.9 Chronic obstructive pulmonary disease, unspecified; K75.9 Inflammatory liver disease, unspecified; M19.90 Unspecified osteoarthritis, unspecified site; M65.9 Synovitis and tenosynovitis, unspecified; N18.9 Chronic kidney disease, unspecified; N40.0 Benign prostatic hyperplasia without lower urinary tract symptoms; R79.1 Abnormal coagulation profile; S91.332A Puncture wound without foreign body, left foot, initial encounter; Z96.619 Presence of unspecified artificial shoulder joint; Z96.652 Presence of left artificial knee joint; Z60.2 Problems related to living alone; Z74.01 Bed confinement status; Z79.01 Long term (current) use of anticoagulants; Z68.37 Body mass index [BMI] 37.0-37.9, adult; Z86.718 Personal history of other venous thrombosis and embolism; Z89.429 Acquired absence of other toe(s), unspecified side; Y93.89 Activity, other specified; Y92.89 Other specified places as the place of occurrence of the external cause; Y99.8 Other external cause status; Z88.1 Allergy status to other antibiotic agents; Z88.0 Allergy status to penicillin
CPT/HCPCS: 36415; 36430; 36600; 70450; 71045; 72072; 72100; 73030; 73502; 73560; 73630; 73718; 78582; 80048; 80053; 80170; 80202; 81001; 82550; 82553; 82607; 82728; 82746; 82803; 82948; 83605; 83735; 83874; 83880; 84100; 84132; 84443; 84484; 85014; 85018; 85025; 85027; 85610; 85730; 86850; 86900; 86901; 86922; 87040; 87070; 87076; 87077; 87186; 87205; 88305; 88311; 93005; 93306; 93925; 93970; 94640; 94660; 94664; 97039; 99291; A4218; A9540; A9558; C1894; G0390; J1200; J1580; J1630; J1650; J1756; J1815; J2185; J2250; J2270; J2704; J2930; J3010; J3370; J3480; J3490; J7030; P9016; Q0163

== ENCOUNTER 2019-07-18 10:01 | Inpatient (IN) | payer OTHER, MEDICARE ==
[~2019-07-18] VITALS: Ht 180.3 cm; Wt 109.6 kg
[~2019-07-18 10:01] MED LIST changes: -ASCO500C18 PO; +CICL6.6S8 TP; +DIPH25TA20 PO; -DULO60CA63 PO; +DULO60CA64 PO; +MULT-30 PO
[2019-07-18] MEDS ORDERED: SODIUM CHLORIDE 0.9% 1000ML 1,000 ML IV ONE ×2 (10:58→15:13)
[2019-07-18 11:32] LABS: CREATININE 1.5 mg/dL (0.5-1.5); POTASSIUM 3.8 mmol/L (3.5-5.1)
[2019-07-18 11:37] LABS: BASOPHILS % (AUTO) 0.4 % (0.0-5.0); BILIRUBIN,TOTAL 0.2 mg/dL (0.2-1.0); EOSINOPHILS % (AUTO) 2.5 % (0.0-8.0); HEMATOCRIT 35.5 % (42-54); LYMPHOCYTES % (AUTO) 20.9 % (21.0-51.0); MEAN CORPUSCULAR HEMOGLOBIN 25.7 pg (27.0-33.0); MEAN CORPUSCULAR HGB CONC 29.9 g/dL (32.0-36.0); MONOCYTES % (AUTO) 7.4 % (3.0-13.0); NEUTROPHILS % (AUTO) 68.5 % (40.0-77.0); PLATELET COUNT (AUTO) 368 K/uL (130-400); RED BLOOD CELL COUNT(AUTO) 4.13 MIL/uL (4.50-6.20); TOTAL PROTEIN, SERUM 9.7 g/dL (6.0-8.3); WHITE BLOOD COUNT (AUTO) 7.2 K/uL (4.8-10.8)
[2019-07-18] MEDS ORDERED: VANCOMYCIN 1.75 GM in SODIUM CHLORIDE 0.9% 250 ML IV SCH (11:45)
[2019-07-18] MEDS ORDERED: IOHEXOL 350 MG/ML 100ML INFUS..BTL IV ONE (11:47)
[2019-07-18 12:02] LABS: INR 1.25 (0.85-1.15); PARTIAL THROMBOPLASTIN TIME 39.9 SEC (26.3-35.5); PROTHROMBIN TIME 13.4 SEC (9.6-11.6)
[2019-07-18] MEDS ORDERED: CEFTRIAXONE SODIUM 2 GM VIAL ONE (13:48)
[2019-07-18] MEDS ORDERED: ZOSYN 3.375GM+NS 50ML 50 ML IV ONE (15:12)
[2019-07-18] MEDS ORDERED: LIDOCAINE HCL-MPF 1% 2ML VIAL IV PRN (15:15)
[2019-07-18] MEDS ORDERED: DEXTROSE 50%-WATER 50 ML DISP.SYRIN IV PRN (15:15)
[2019-07-18] MEDS ORDERED: ONDANSETRON HCL 4 MG/2 ML VIAL IV PRN (15:15)
[2019-07-18] MEDS ORDERED: GUAIFENESIN-DM 200/20 MG 10 ML PO PRN (15:15)
[2019-07-18] MEDS ORDERED: ACETAMINOPHEN 325 MG TAB PO PRN ×2 (15:15)
[2019-07-18] MEDS ORDERED: POTASSIUM CHLORIDE 10% ELIXIR 20 MEQ/15 ML UDCUP PO PRN (15:15)
[2019-07-18] MEDS ORDERED: NITROGLYCERIN 0.4 MG SL TAB SL PRN (15:15)
[2019-07-18] MEDS ORDERED: LACTULOSE 20 GM/30 ML UDCUP PO PRN (15:15)
[2019-07-18] MEDS ORDERED: POTASSIUM CHLORIDE 20 MEQ ERTAB PO PRN (15:15)
[2019-07-18] MEDS ORDERED: HYDRALAZINE HCL 20 MG/ML VIAL IV PRN (15:15)
[2019-07-18] MEDS ORDERED: POTASSIUM CHLORIDE 20MEQ/100ML 100 ML IV PRN (15:15)
[2019-07-18] MEDS ORDERED: GLUCAGON 1MG KIT 1 MG ML IM PRN (15:15)
[2019-07-18] MEDS ORDERED: COMPOUND IV REFRIGERATED 1 EACH IVSOLN MISC PRN (15:30)
[2019-07-18] MEDS ORDERED: SODIUM CHLORIDE 0.9% 1000ML 1,000 ML IV SCH (15:30)
[2019-07-18] MEDS: INSULIN HUMULIN R 100 UNIT/ML 3ML SQ SCH ×2 (16:30→20:04)
[2019-07-18 17:00] VITALS: BP 121/60
[2019-07-18 19:00] VITALS: BP 127/62
[2019-07-18] MEDS: FAMOTIDINE 20MG TAB 20 MG TAB PO SCH (20:30)
[2019-07-18] MEDS: CLINDAMYCIN 600 MG/D5% WATER 50 ML IV SCH (20:35)
[2019-07-18] MEDS: HEPARIN SODIUM 5000UNIT/ML 1ML VIAL SQ SCH (20:36)
[2019-07-18] MEDS ORDERED: ZOSYN 3.375GM+NS 50ML 50 ML IV SCH (21:00)
[2019-07-18] MEDS ORDERED: PHARMACY COMMUNICATION MISC PRN (21:00)
[2019-07-18] MEDS ORDERED: LINA5TAB PO (21:08)
[2019-07-18] MEDS ORDERED: THIA100T91 PO (21:08)
[2019-07-18] MEDS ORDERED: SULF1TAB42 PO (21:08)
[2019-07-18] MEDS ORDERED: ATOR20TA65 PO (21:08)
[2019-07-18] MEDS ORDERED: LEVO125T11 PO (21:08)
[2019-07-18] MEDS ORDERED: TRAM50TA4 PO (21:08)
[2019-07-18] MEDS ORDERED: ASCO500C18 PO (21:08)
[2019-07-18] MEDS ORDERED: FERR325T22 PO (21:08)
[2019-07-18] MEDS ORDERED: DULO60CA64 PO (21:08)
[2019-07-18] MEDS ORDERED: ACET325T51 PO (21:08)
[2019-07-18] MEDS ORDERED: [UNRECOGNIZED DRUG - CODE] PO (21:08)
[2019-07-18] MEDS ORDERED: RIVA15TA PO (21:08)
[2019-07-18 23:30] VITALS: BP 126/62
[2019-07-19] MEDS: CLINDAMYCIN 600 MG/D5% WATER 50 ML IV SCH ×3 (00:15→12:30)
[2019-07-19] MEDS: SODIUM CHLORIDE 0.9% 1000ML 1,000 ML IV SCH ×3 (01:08→11:08)
[2019-07-19 02:55] LABS: APPEARANCE,URINE Clear (CLEAR); BILIRUBIN,URINE Negative (NEGATIVE); COLOR,URINE Yellow (YELLOW); GLUCOSE, URINE (UA) Negative (NEGATIVE); KETONES,URINE Negative (NEGATIVE); LEUKOCYTE ESTERASE ,URINE Negative (NEGATIVE); NITRATE,URINE Negative (NEGATIVE); OCCULT BLOOD,URINE Negative (NEGATIVE); PROTEIN,URINE Negative (NEGATIVE); UROBILINOGEN,URINE 0.2 mg/dL (0.2-1.0)
--- NOTE | 2019-07-19 03:51 | NUR ---
patient refused vital signs at this time and to bathe.
[2019-07-19] MEDS: DiphenhydrAMINE HCL 50 MG/ML VIAL IV PRN (05:08)
[2019-07-19] MEDS: LEVOTHYROXINE 125 MCG TABLET PO SCH (05:42)
[2019-07-19] MEDS: CHLORDIAZEPOXIDE HCL 25 MG CAP PO PRN ×2 (05:42→23:27)
[2019-07-19 05:48] LABS: HEMATOCRIT 30.7 % (42-54); MEAN CORPUSCULAR HEMOGLOBIN 26.2 pg (27.0-33.0); MEAN CORPUSCULAR HGB CONC 30.3 g/dL (32.0-36.0); MEAN CORPUSCULAR VOLUME 86.5 fL (79-99); PLATELET COUNT (AUTO) 327 K/uL (130-400); RED BLOOD CELL COUNT(AUTO) 3.55 MIL/uL (4.50-6.20); RED CELL DISTRIBUTION WIDTH 16.9 % (11.0-15.5); WHITE BLOOD COUNT (AUTO) 7.6 K/uL (4.8-10.8)
[2019-07-19 06:02] LABS: HEMOGLOBIN A1C 6.9 % (4.0-6.0)
[2019-07-19 06:04] LABS: CREATININE 1.4 mg/dL (0.5-1.5); POTASSIUM 3.9 mmol/L (3.5-5.1)
[2019-07-19 07:30] VITALS: BP 153/55
[2019-07-19] MEDS: INSULIN HUMULIN R 100 UNIT/ML 3ML SQ SCH ×4 (07:30→20:46)
[2019-07-19] MEDS: GABAPENTIN 300 MG CAPSULE PO SCH ×3 (09:00→20:57)
[2019-07-19] MEDS: FUROSEMIDE 40 MG TABLET PO SCH (09:00)
[2019-07-19] MEDS ORDERED: TRAMADOL HCL 50 MG TABLET PO PRN (09:00)
[2019-07-19] MEDS: THIAMINE HCL 100 MG TABLET PO SCH (09:00)
[2019-07-19] MEDS: FOLIC ACID 1 MG TABLET PO SCH (09:03)
[2019-07-19] MEDS: HEPARIN SODIUM 5000UNIT/ML 1ML VIAL SQ SCH ×2 (09:10→20:45)
--- NOTE | 2019-07-19 09:23 | NUR ---
nursing communication order from Hernan Whalen RESEARCH STATISTICIAN to cont. home meds as reconcilled so i have gone threw the list and initiated ones marked to cont. i have let pt take first dose of them from his own supply this am; i have also changed dressing to pt's right hip at site of oozing wound , greenish drainage saturated on dressing; i have informed dr mike via phone of the consult.
[2019-07-19] MEDS: ASCORBIC ACID 500 MG TAB PO SCH (09:55)
[2019-07-19] MEDS: DULOXETINE HCL 30 MG CAP PO SCH ×2 (09:56→20:57)
[2019-07-19 11:00] VITALS: BP 152/63
--- NOTE | 2019-07-19 12:00 | NUR ---
i rounded with dr Bowling as he visited patient; he went over with patient different options available to him in regards to different types of surgical interventions to treat an infected hip prosthesis and non surgical interventions of iv abx and then oral abx treatment; after much discussion pt decided to have the surgical prosthesis removal treatment and then plan on 6 weeks of iv abx at snf; all of pt's questions were answered by dr Bowling and pt stated understanding of his different options; dr Bowling also examined pt's right hip to assess area of abscess, pt has a small open wound that is draining serous cream colored drainage; SUPERVISING NURSE Hernan Whalen was also in the pt's room and she is aware that dr Bowling is requesting medical clearanace for the surgery. will cont to monitor
[2019-07-19] MEDS: VANCOMYCIN 750MG + NS 250 ML IV SCH ×4 (12:30→20:52)
[2019-07-19 16:00] VITALS: BP 131/60
--- NOTE | 2019-07-19 16:35 | NUR ---
cm note met with patient and states resides at home alone, [facility] has no family. uses walker for ambulation, has a bsc, no other dme, has provider 38hrs per week with "shira carlson" , and she transports to md as needed. discussed dc planning, [facility] he is aware he needs to go to snf, and he prefers to go to [facility], and no other facility, does not want to go to [facility]. Choice letter/REJI signed by pt for [facility] Addendum: 07/19/19 at 1653 by LEFTY HAINES CM Amended: Links added.
[2019-07-19] MEDS: CEFTAZIDIME PENTAHYDRATE 1 GM/VIAL IVP SCH ×2 (18:24→20:53)
[2019-07-19 20:00] VITALS: BP 125/58
[2019-07-19] MEDS: ATORVASTATIN CALCIUM 20 MG TABLET PO SCH (20:56)
[2019-07-19] MEDS: TAMSULOSIN HCL 0.4 MG CAP.ER.24H PO SCH (20:56)
[2019-07-19] MEDS: ACETAMINOPHEN EXTRA STRENGTH 500 MG TABLET PO SCH (20:57)
[2019-07-19] MEDS: FAMOTIDINE 20MG TAB 20 MG TAB PO SCH (21:00)
[2019-07-19] MEDS ORDERED: DIPHEN PO SCH (21:00)
[2019-07-19 23:00] VITALS: BP 131/61
[2019-07-20] VITALS (26 sets, daily range): BP systolic 73–148; BP diastolic 36–96
[2019-07-20] MEDS: LEVOTHYROXINE 125 MCG TABLET PO SCH ×2 (05:05→05:07)
[2019-07-20] MEDS: CEFTAZIDIME PENTAHYDRATE 1 GM/VIAL IVP SCH ×2 (05:05→23:45)
[2019-07-20] MEDS: SODIUM CHLORIDE 0.9% 1000ML 1,000 ML IV SCH ×2 (05:08→23:40)
[2019-07-20] MEDS: INSULIN HUMULIN R 100 UNIT/ML 3ML SQ SCH ×3 (05:14→21:00)
--- NOTE | 2019-07-20 05:14 | NUR ---
patient refused an accucheck and to shower before the procedure.
[2019-07-20 06:24] LABS: HEMATOCRIT 33.2 % (42-54); MEAN CORPUSCULAR HEMOGLOBIN 25.6 pg (27.0-33.0); MEAN CORPUSCULAR HGB CONC 29.5 g/dL (32.0-36.0); MEAN CORPUSCULAR VOLUME 86.7 fL (79-99); PLATELET COUNT (AUTO) 338 K/uL (130-400); RED BLOOD CELL COUNT(AUTO) 3.83 MIL/uL (4.50-6.20); RED CELL DISTRIBUTION WIDTH 17.3 % (11.0-15.5); WHITE BLOOD COUNT (AUTO) 7.9 K/uL (4.8-10.8)
[2019-07-20 06:40] LABS: CREATININE 1.5 mg/dL (0.5-1.5); POTASSIUM 4.6 mmol/L (3.5-5.1)
[2019-07-20 06:51] LABS: INR 1.06 (0.85-1.15); PARTIAL THROMBOPLASTIN TIME 31.3 SEC (26.3-35.5); PROTHROMBIN TIME 11.4 SEC (9.6-11.6)
[2019-07-20] MEDS: FOLIC ACID 1 MG TABLET PO SCH (09:00)
[2019-07-20] MEDS: VANCOMYCIN 750MG + NS 250 ML IV SCH ×10 (09:00→23:40)
[2019-07-20] MEDS: GABAPENTIN 300 MG CAPSULE PO SCH ×2 (09:00→23:53)
[2019-07-20] MEDS: THIAMINE HCL 100 MG TABLET PO SCH (09:00)
[2019-07-20] MEDS: MULTIVITAMIN WITH MINERALS TABLET PO SCH (09:00)
[2019-07-20] MEDS: FERROUS SULFATE 325 MG TABLET.DR PO SCH (09:00)
[2019-07-20] MEDS: DULOXETINE HCL 30 MG CAP PO SCH ×2 (09:00→23:54)
[2019-07-20] MEDS: ASCORBIC ACID 500 MG TAB PO SCH (09:00)
[2019-07-20] MEDS: FUROSEMIDE 40 MG TABLET PO SCH (09:00)
[2019-07-20] MEDS: LACTATED RINGERS 1000ML 1,000 ML IV SCH ×2 (11:11→20:50)
--- NOTE | 2019-07-20 12:00 | NUR ---
pre op pt has open wound to rt hip pale in color and draining yellowish drainage, small amt. gauze dressing with medipore tape to site Addendum: 07/20/19 at 1241 by JEAN CLAUDE AYON RN RN Amended: Links added.
[2019-07-20] MEDS ORDERED: SODIUM CHLORIDE 0.9% 1000ML 1,000 ML IV ONE (12:22)
[2019-07-20] MEDS: ACETAMINOPHEN EXTRA STRENGTH 500 MG TABLET PO SCH ×2 (12:25→20:45)
--- NOTE | 2019-07-20 12:30 | NUR ---
CM NOTE/PENDING REFERRAL NEW REFERRAL FOR SNF PER [facility]. PER DR. FLORES, OTHO SURGEON, RECOMMENDING [facility] INSTEAD OF [facility] DUE TO REQUIRES IV ANTIBIOTICS X2 FOR 6 WEEKS. PER NURSE, DR. FLORES TO SPEAK TO PATIENT FIRST BEFORE REFERRAL IS SENT. PENDING DR. FLORES SURGERY AND RECOMMENDATIONS. ADDY BALLESTEROS MAIL TELLER INFORMED.
[2019-07-20] MEDS ORDERED: LIDOCAINE PF 2% 5ML ABBOJECT ONE (13:34)
[2019-07-20] MEDS ORDERED: ROCURONIUM 10MG/1ML SYR 10 MG/ML ML ONE ×3 (13:34→17:27)
[2019-07-20] MEDS ORDERED: MIDAZOLAM HCL 1 MG/ML 2ML VIAL ONE (13:34)
[2019-07-20] MEDS ORDERED: SUCCINYLCHOLINE CHLORIDE 20 MG/ML 10 ML VIAL ONE (13:34)
[2019-07-20] MEDS ORDERED: PROPOFOL 10 MG/ML 20ML VIAL IV ONE (13:34)
[2019-07-20] MEDS ORDERED: FENTANYL CITRATE PF 50 MCG/1 ML 2ML VIAL ONE (13:36)
[2019-07-20] MEDS ORDERED: ROPIVACAINE 0.5% 5MG/ML 30ML IJ ONE (13:46)
[2019-07-20] MEDS ORDERED: VANCOMYCIN HCL 1 GM VIAL ONE ×3 (15:53→19:33)
[2019-07-20] MEDS ORDERED: GLYCOPYRROLATE 1 MG/5 ML SYRINGE ONE (15:59)
[2019-07-20] MEDS: VANCOMYCIN HCL 1 GM VIAL ONE ×2 (16:14→19:33)
[2019-07-20 16:52] LABS: HEMATOCRIT 33.3 % (42-54)
[2019-07-20] MEDS ORDERED: ONDANSETRON HCL 4 MG/2 ML VIAL ONE (20:03)
[2019-07-20] MEDS ORDERED: NEOSTIGMINE 5MG/5ML SYR IV ONE (20:09)
[2019-07-20] MEDS ORDERED: TRAMADOL HCL 50 MG TABLET PO PRN (20:45)
[2019-07-20] MEDS ORDERED: POTASSIUM CHLORIDE 10% ELIXIR 20 MEQ/15 ML UDCUP PO PRN (20:45)
[2019-07-20] MEDS ORDERED: HYDROMORPHONE PCA 10 MG/50 ML 50 ML IV PRN (20:45)
[2019-07-20] MEDS ORDERED: TEMAZEPAM 15 MG CAPSULE PO PRN (20:45)
[2019-07-20] MEDS ORDERED: KETOROLAC TROMETHAMINE 15MG/ML IV PRN (20:45)
[2019-07-20] MEDS ORDERED: POTASSIUM CHLORIDE 20MEQ/100ML 100 ML IV PRN (20:45)
[2019-07-20] MEDS ORDERED: CALCIUM CARBONATE 500 MG TABLET PO PRN (20:45)
[2019-07-20] MEDS ORDERED: ONDANSETRON HCL 4 MG/2 ML VIAL IVP PRN (20:45)
[2019-07-20] MEDS ORDERED: DiphenhydrAMINE HCL 50 MG/ML VIAL IVP PRN (20:45)
[2019-07-20] MEDS ORDERED: LIDOCAINE HCL-MPF 1% 2ML VIAL IV PRN (20:45)
[2019-07-20] MEDS ORDERED: NALOXONE HCL 0.4 MG/1 ML ML IVP PRN (20:45)
[2019-07-20] MEDS ORDERED: ALBUMIN (HUMAN) 5% 250 ML IV ONE (20:54)
[2019-07-20] MEDS: FAMOTIDINE 20MG TAB 20 MG TAB PO SCH (21:00)
[2019-07-20 21:23] LABS: HEMATOCRIT 31.2 % (42-54)
[2019-07-20] MEDS: PREGABALIN 25 MG CAP PO SCH (23:40)
[2019-07-20] MEDS: ATORVASTATIN CALCIUM 20 MG TABLET PO SCH (23:40)
[2019-07-20] MEDS: CELECOXIB 200 MG CAP PO SCH (23:40)
[2019-07-20] MEDS: TAMSULOSIN HCL 0.4 MG CAP.ER.24H PO SCH (23:53)
[2019-07-20] MEDS: OXYCODONE HCL 5 MG TAB PO PRN (23:54)
[2019-07-21] VITALS (9 sets, daily range): BP systolic 100–142; BP diastolic 44–72
--- NOTE | 2019-07-21 00:39 | NUR ---
pt refused incentive spirometry, due to pain Addendum: 07/21/19 at 0040 by BIA SLAUGHTER RT Amended: Links added.
[2019-07-21] MEDS: ACETAMINOPHEN EXTRA STRENGTH 500 MG TABLET PO SCH ×3 (04:45→21:01)
[2019-07-21] MEDS: LEVOTHYROXINE 125 MCG TABLET PO SCH (06:30)
[2019-07-21] MEDS: SODIUM CHLORIDE 0.9% 1000ML 1,000 ML IV SCH ×2 (06:44→16:44)
[2019-07-21 07:18] LABS: HEMATOCRIT 25.6 % (42-54); MEAN CORPUSCULAR HEMOGLOBIN 26.6 pg (27.0-33.0); MEAN CORPUSCULAR HGB CONC 30.1 g/dL (32.0-36.0); MEAN CORPUSCULAR VOLUME 88.6 fL (79-99); PLATELET COUNT (AUTO) 287 K/uL (130-400); RED BLOOD CELL COUNT(AUTO) 2.89 MIL/uL (4.50-6.20); RED CELL DISTRIBUTION WIDTH 17.1 % (11.0-15.5); WHITE BLOOD COUNT (AUTO) 10.3 K/uL (4.8-10.8)
[2019-07-21 07:38] LABS: CREATININE 1.2 mg/dL (0.5-1.5); POTASSIUM 4.2 mmol/L (3.5-5.1)
[2019-07-21] MEDS: OXYCODONE HCL 5 MG TAB PO PRN (08:07)
[2019-07-21] MEDS: VANCOMYCIN 750MG + NS 250 ML IV SCH ×6 (09:00→22:09)
[2019-07-21] MEDS: DULOXETINE HCL 30 MG CAP PO SCH ×2 (09:14→21:01)
[2019-07-21] MEDS: POLYETHYLENE GLYCOL 3350 17 GM POWD.PACK PO SCH (09:14)
[2019-07-21] MEDS: PREGABALIN 25 MG CAP PO SCH ×2 (09:14→20:59)
[2019-07-21] MEDS: CELECOXIB 200 MG CAP PO SCH ×2 (09:14→21:01)
[2019-07-21] MEDS: THIAMINE HCL 100 MG TABLET PO SCH (09:14)
[2019-07-21] MEDS: FOLIC ACID 1 MG TABLET PO SCH (09:15)
[2019-07-21] MEDS: ASCORBIC ACID 500 MG TAB PO SCH (09:15)
[2019-07-21] MEDS: GABAPENTIN 300 MG CAPSULE PO SCH ×3 (09:15→21:01)
[2019-07-21] MEDS: FUROSEMIDE 40 MG TABLET PO SCH (09:15)
[2019-07-21] MEDS: MULTIVITAMIN WITH MINERALS TABLET PO SCH (09:16)
[2019-07-21] MEDS: ENOXAPARIN SODIUM 40 MG/0.4 ML SYRINGE SQ SCH (09:34)
[2019-07-21] MEDS: INSULIN HUMULIN R 100 UNIT/ML 3ML SQ SCH ×3 (11:30→21:00)
--- NOTE | 2019-07-21 11:30 | NUR ---
PRBC/PICC one unit started. witnessed by BOB Solorzano. pt explained the purpose of PRBC and also explained the reason'/purpose of PICC line. verbalized understanding and voiced no concerns or questions.
--- NOTE | 2019-07-21 12:00 | NUR ---
PRBC no adverse reaction from blood transfusion. rate increased to 125 mls/hr. continue to monitor
--- NOTE | 2019-07-21 14:42 | NUR ---
post PRBC completed transfusion of ONE PRBC. pt tolerated well. no signs or symptoms of an adverse reaction. pt is awake alert and oriented. denies any shortness of breath and/or pain.
[2019-07-21] MEDS: CEFTAZIDIME PENTAHYDRATE 1 GM/VIAL IVP SCH ×2 (15:08→22:01)
[2019-07-21] MEDS: TAMSULOSIN HCL 0.4 MG CAP.ER.24H PO SCH (20:59)
[2019-07-21] MEDS: FAMOTIDINE 20MG TAB 20 MG TAB PO SCH (20:59)
[2019-07-21] MEDS: ATORVASTATIN CALCIUM 20 MG TABLET PO SCH (20:59)
[2019-07-22] MEDS: OXYCODONE HCL 5 MG TAB PO PRN ×2 (01:19→08:59)
[2019-07-22] MEDS: FERROUS FUMARATE 324 MG TABLET PO PRN ×2 (01:19→09:04)
--- NOTE | 2019-07-22 01:27 | NUR ---
CARE Assumed care this time,report given per Olvin Anguiano Rn.Hemovac to rt hip,dressing to rt hip changed per Evens Anguiano Rn.
[2019-07-22 03:37] VITALS: BP 111/60
[2019-07-22] MEDS: ACETAMINOPHEN EXTRA STRENGTH 500 MG TABLET PO SCH ×3 (04:13→20:45)
[2019-07-22 06:04] LABS: HEMATOCRIT 24.3 % (42-54); MEAN CORPUSCULAR HEMOGLOBIN 26.3 pg (27.0-33.0); MEAN CORPUSCULAR HGB CONC 29.6 g/dL (32.0-36.0); MEAN CORPUSCULAR VOLUME 88.7 fL (79-99); PLATELET COUNT (AUTO) 223 K/uL (130-400); RED BLOOD CELL COUNT(AUTO) 2.74 MIL/uL (4.50-6.20); RED CELL DISTRIBUTION WIDTH 17.2 % (11.0-15.5); WHITE BLOOD COUNT (AUTO) 9.3 K/uL (4.8-10.8)
[2019-07-22 06:17] LABS: CREATININE 1.7 mg/dL (0.5-1.5); POTASSIUM 3.9 mmol/L (3.5-5.1)
[2019-07-22] MEDS: INSULIN HUMULIN R 100 UNIT/ML 3ML SQ SCH ×4 (06:26→20:16)
[2019-07-22] MEDS: LEVOTHYROXINE 125 MCG TABLET PO SCH (06:27)
[2019-07-22] MEDS: CEFTAZIDIME PENTAHYDRATE 1 GM/VIAL IVP SCH (06:27)
[2019-07-22 08:00] VITALS: BP 99/56
[2019-07-22] MEDS: FOLIC ACID 1 MG TABLET PO SCH (08:53)
[2019-07-22] MEDS: POLYETHYLENE GLYCOL 3350 17 GM POWD.PACK PO SCH (08:53)
[2019-07-22] MEDS: THIAMINE HCL 100 MG TABLET PO SCH (08:53)
[2019-07-22] MEDS: ASCORBIC ACID 500 MG TAB PO SCH (08:54)
[2019-07-22] MEDS: DULOXETINE HCL 30 MG CAP PO SCH ×2 (08:54→20:09)
[2019-07-22] MEDS: GABAPENTIN 300 MG CAPSULE PO SCH ×3 (08:54→20:08)
[2019-07-22] MEDS: FUROSEMIDE 40 MG TABLET PO SCH (08:55)
[2019-07-22] MEDS: CELECOXIB 200 MG CAP PO SCH ×2 (08:55→20:09)
[2019-07-22] MEDS: PREGABALIN 25 MG CAP PO SCH ×2 (08:56→20:08)
[2019-07-22] MEDS: FERROUS SULFATE 325 MG TABLET.DR PO SCH (09:00)
[2019-07-22] MEDS: MULTIVITAMIN WITH MINERALS TABLET PO SCH (09:00)
[2019-07-22] MEDS: ENOXAPARIN SODIUM 40 MG/0.4 ML SYRINGE SQ SCH (09:03)
--- NOTE | 2019-07-22 11:45 | NUR ---
CALLED PHARMACY FOR [address], THEY STATED OUT FOR DELIVERY.
[2019-07-22 12:00] VITALS: BP 110/66
--- NOTE | 2019-07-22 12:18 | NUR ---
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
[2019-07-22] MEDS: VANCOMYCIN 750MG + NS 250 ML IV SCH ×4 (12:30→20:08)
[2019-07-22 16:00] VITALS: BP 119/62
[2019-07-22 19:00] VITALS: BP 96/65
[2019-07-22] MEDS: FAMOTIDINE 20MG TAB 20 MG TAB PO SCH (20:09)
[2019-07-22] MEDS: ATORVASTATIN CALCIUM 20 MG TABLET PO SCH (20:09)
[2019-07-22] MEDS: TAMSULOSIN HCL 0.4 MG CAP.ER.24H PO SCH (20:09)
[2019-07-23] VITALS (7 sets, daily range): BP systolic 111–128; BP diastolic 54–68
[2019-07-23] MEDS: ACETAMINOPHEN EXTRA STRENGTH 500 MG TABLET PO SCH ×3 (04:40→21:47)
[2019-07-23] MEDS: LEVOTHYROXINE 125 MCG TABLET PO SCH (05:42)
[2019-07-23] MEDS: INSULIN HUMULIN R 100 UNIT/ML 3ML SQ SCH ×4 (06:11→21:00)
[2019-07-23 06:13] LABS: BASOPHILS % (AUTO) 0.1 % (0.0-5.0); EOSINOPHILS % (AUTO) 3.4 % (0.0-8.0); HEMATOCRIT 25.4 % (42-54); LYMPHOCYTES % (AUTO) 18.6 % (21.0-51.0); MEAN CORPUSCULAR HGB CONC 30.3 g/dL (32.0-36.0); MEAN CORPUSCULAR VOLUME 89.1 fL (79-99); MONOCYTES % (AUTO) 12.5 % (3.0-13.0); NEUTROPHILS % (AUTO) 64.9 % (40.0-77.0); PLATELET COUNT (AUTO) 209 K/uL (130-400); RED BLOOD CELL COUNT(AUTO) 2.85 MIL/uL (4.50-6.20); RED CELL DISTRIBUTION WIDTH 16.8 % (11.0-15.5); WHITE BLOOD COUNT (AUTO) 8.1 K/uL (4.8-10.8)
[2019-07-23 06:25] LABS: ALBUMIN 2.3 g/dL (3.5-5.0); BILIRUBIN,TOTAL 0.2 mg/dL (0.2-1.0); CREATININE 1.3 mg/dL (0.5-1.5); POTASSIUM 3.5 mmol/L (3.5-5.1); TOTAL PROTEIN, SERUM 6.9 g/dL (6.0-8.3)
[2019-07-23] MEDS: POTASSIUM CHLORIDE 20 MEQ ERTAB PO PRN ×2 (06:38→15:34)
[2019-07-23] MEDS: POLYETHYLENE GLYCOL 3350 17 GM POWD.PACK PO SCH (08:51)
[2019-07-23] MEDS: DULOXETINE HCL 30 MG CAP PO SCH ×2 (08:53→21:48)
[2019-07-23] MEDS: PREGABALIN 25 MG CAP PO SCH ×2 (08:53→21:48)
[2019-07-23] MEDS: THIAMINE HCL 100 MG TABLET PO SCH (08:54)
[2019-07-23] MEDS: CELECOXIB 200 MG CAP PO SCH ×2 (08:54→21:48)
[2019-07-23] MEDS: GABAPENTIN 300 MG CAPSULE PO SCH ×3 (08:54→21:47)
[2019-07-23] MEDS: ASCORBIC ACID 500 MG TAB PO SCH (08:55)
[2019-07-23] MEDS: FUROSEMIDE 40 MG TABLET PO SCH (08:55)
[2019-07-23] MEDS: FOLIC ACID 1 MG TABLET PO SCH (08:56)
[2019-07-23] MEDS: ENOXAPARIN SODIUM 40 MG/0.4 ML SYRINGE SQ SCH (08:59)
[2019-07-23] MEDS: MULTIVITAMIN WITH MINERALS TABLET PO SCH (09:00)
[2019-07-23] MEDS: OXYCODONE HCL 5 MG TAB PO PRN (09:00)
[2019-07-23] MEDS: DiphenhydrAMINE HCL 50 MG/ML VIAL IV PRN ×2 (11:04→18:56)
[2019-07-23] MEDS: VANCOMYCIN 750MG + NS 250 ML IV SCH ×4 (11:04→21:45)
[2019-07-23] MEDS ORDERED: SODIUM CHLORIDE 0.9% 250 ML IV ONE (15:25)
--- NOTE | 2019-07-23 16:23 | NUR ---
Nutrition Intervention: Nutrition screen based on LOS x 5 days. Pt. asleep during RD visit earlier. 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 Pt. NPO for Right Hip Second Look I&D. Labs reviewed(BG 210, HgbA1c 6.9%, Alb 2.3). SR-15, right hip incision. LBM: 07/19/2019. BMI: 33.7, Obesity Grade 1. Recommendations: 1) When diet resumed, rec. 75gm CCD Heart Healthy, 30ml ProMod BID. 2) Continue to monitor pt's nutritional status. 3) Consult RD as nutrition concerns arise. Addendum: 07/23/19 at [address] Amended: Links added.
[2019-07-23] MEDS ORDERED: BISACODYL 10 MG SUPP.RECT RC PRN (20:45)
[2019-07-23] MEDS: ATORVASTATIN CALCIUM 20 MG TABLET PO SCH (21:48)
[2019-07-23] MEDS: FAMOTIDINE 20MG TAB 20 MG TAB PO SCH (21:48)
[2019-07-23] MEDS: TAMSULOSIN HCL 0.4 MG CAP.ER.24H PO SCH (21:48)
[2019-07-24] VITALS (25 sets, daily range): BP systolic 114–149; BP diastolic 52–78
[2019-07-24] MEDS: ACETAMINOPHEN EXTRA STRENGTH 500 MG TABLET PO SCH ×3 (04:45→18:36)
[2019-07-24] MEDS: LEVOTHYROXINE 125 MCG TABLET PO SCH (05:51)
[2019-07-24] MEDS: INSULIN HUMULIN R 100 UNIT/ML 3ML SQ SCH ×4 (05:52→21:00)
[2019-07-24 06:53] LABS: HEMATOCRIT 28.3 % (42-54); MEAN CORPUSCULAR HEMOGLOBIN 27.1 pg (27.0-33.0); MEAN CORPUSCULAR HGB CONC 31.1 g/dL (32.0-36.0); MEAN CORPUSCULAR VOLUME 87.1 fL (79-99); PLATELET COUNT (AUTO) 233 K/uL (130-400); RED BLOOD CELL COUNT(AUTO) 3.25 MIL/uL (4.50-6.20); RED CELL DISTRIBUTION WIDTH 17.1 % (11.0-15.5); WHITE BLOOD COUNT (AUTO) 7.9 K/uL (4.8-10.8)
[2019-07-24 07:11] LABS: CREATININE 1.1 mg/dL (0.5-1.5); POTASSIUM 3.9 mmol/L (3.5-5.1)
[2019-07-24] MEDS: THIAMINE HCL 100 MG TABLET PO SCH (09:00)
[2019-07-24] MEDS: ASCORBIC ACID 500 MG TAB PO SCH (09:00)
[2019-07-24] MEDS: POLYETHYLENE GLYCOL 3350 17 GM POWD.PACK PO SCH (09:00)
[2019-07-24] MEDS: MULTIVITAMIN WITH MINERALS TABLET PO SCH (09:00)
[2019-07-24] MEDS: ENOXAPARIN SODIUM 40 MG/0.4 ML SYRINGE SQ SCH (09:00)
[2019-07-24] MEDS: FERROUS SULFATE 325 MG TABLET.DR PO SCH (09:00)
[2019-07-24] MEDS: FOLIC ACID 1 MG TABLET PO SCH (09:00)
[2019-07-24] MEDS: FUROSEMIDE 40 MG TABLET PO SCH (09:45)
[2019-07-24] MEDS: VANCOMYCIN 750MG + NS 250 ML IV SCH ×4 (09:45→20:57)
[2019-07-24] MEDS: GABAPENTIN 300 MG CAPSULE PO SCH ×3 (09:45→20:53)
[2019-07-24] MEDS: PREGABALIN 25 MG CAP PO SCH ×2 (09:45→20:54)
[2019-07-24] MEDS: CELECOXIB 200 MG CAP PO SCH ×2 (09:45→20:54)
[2019-07-24] MEDS: DULOXETINE HCL 30 MG CAP PO SCH ×2 (09:45→20:53)
[2019-07-24] MEDS ORDERED: VANCOMYCIN HCL 1 GM VIAL ONE ×3 (12:14→14:44)
[2019-07-24] MEDS ORDERED: LIDOCAINE PF 2% 5ML ABBOJECT ONE (12:18)
[2019-07-24] MEDS ORDERED: ROCURONIUM 10MG/1ML SYR 10 MG/ML ML ONE (12:19)
[2019-07-24] MEDS ORDERED: SUCCINYLCHOLINE CHLORIDE 20 MG/ML 10 ML VIAL ONE (12:19)
[2019-07-24] MEDS ORDERED: PROPOFOL 10 MG/ML 20ML VIAL IV ONE (12:19)
[2019-07-24] MEDS ORDERED: MIDAZOLAM HCL 1 MG/ML 2ML VIAL ONE (12:23)
[2019-07-24] MEDS ORDERED: ONDANSETRON HCL 4 MG/2 ML VIAL ONE (12:25)
[2019-07-24] MEDS: NYSTATIN 100000 UNIT/ML 5ML UDCUP PO SCH ×3 (13:00→20:53)
[2019-07-24] MEDS ORDERED: GLYCOPYRROLATE 1 MG/5 ML SYRINGE ONE (15:32)
[2019-07-24] MEDS ORDERED: NEOSTIGMINE 5MG/5ML SYR IV ONE (15:32)
[2019-07-24] MEDS ORDERED: FENTANYL CITRATE PF 50 MCG/1 ML 2ML VIAL ONE (16:10)
[2019-07-24] MEDS: SODIUM CHLORIDE 0.9% 1000ML 1,000 ML IV SCH (16:52)
--- NOTE | 2019-07-24 18:01 | NUR ---
POST OP RETURNED TO FLOOR. EDGARDO/HEMOVAC INTACT TO R SIDE. PT AWAKE AND ORIENTED, VS STABLE. RECEIVED REPORT FROM NELSY ROJAS
[2019-07-24] MEDS: TAMSULOSIN HCL 0.4 MG CAP.ER.24H PO SCH (20:53)
[2019-07-24] MEDS: FAMOTIDINE 20MG TAB 20 MG TAB PO SCH (20:54)
[2019-07-24] MEDS: ATORVASTATIN CALCIUM 20 MG TABLET PO SCH (20:54)
[2019-07-24] MEDS ORDERED: APIXABAN 2.5 MG TABLET PO SCH (21:00)
[2019-07-25] VITALS (8 sets, daily range): BP systolic 91–123; BP diastolic 43–75
[2019-07-25] MEDS: SODIUM CHLORIDE 0.9% 1000ML 1,000 ML IV SCH ×2 (02:52→11:28)
[2019-07-25] MEDS: ACETAMINOPHEN EXTRA STRENGTH 500 MG TABLET PO SCH ×3 (04:52→21:03)
[2019-07-25] MEDS: INSULIN HUMULIN R 100 UNIT/ML 3ML SQ SCH ×5 (05:35→21:00)
[2019-07-25] MEDS: LEVOTHYROXINE 125 MCG TABLET PO SCH (06:19)
[2019-07-25] MEDS: NYSTATIN 100000 UNIT/ML 5ML UDCUP PO SCH ×4 (08:47→21:01)
[2019-07-25] MEDS: APIXABAN 2.5 MG TABLET PO SCH ×2 (08:47→21:01)
[2019-07-25] MEDS: FOLIC ACID 1 MG TABLET PO SCH (08:48)
[2019-07-25] MEDS: DULOXETINE HCL 30 MG CAP PO SCH ×2 (08:48→21:01)
[2019-07-25] MEDS: GABAPENTIN 300 MG CAPSULE PO SCH ×3 (08:48→21:02)
[2019-07-25] MEDS: MULTIVITAMIN WITH MINERALS TABLET PO SCH (08:48)
[2019-07-25] MEDS: CELECOXIB 200 MG CAP PO SCH ×2 (08:48→21:02)
[2019-07-25] MEDS: VANCOMYCIN 750MG + NS 250 ML IV SCH ×4 (08:48→21:08)
[2019-07-25] MEDS: ASCORBIC ACID 500 MG TAB PO SCH (08:48)
[2019-07-25] MEDS: POLYETHYLENE GLYCOL 3350 17 GM POWD.PACK PO SCH ×2 (08:48→08:49)
[2019-07-25] MEDS: FUROSEMIDE 40 MG TABLET PO SCH (08:48)
[2019-07-25] MEDS: PREGABALIN 25 MG CAP PO SCH ×2 (08:48→21:02)
[2019-07-25] MEDS: THIAMINE HCL 100 MG TABLET PO SCH (08:48)
--- NOTE | 2019-07-25 10:00 | NUR ---
cm note call made to trevor lu with [employer] and states that pt is still pending approval. probably not until saturday willl know. updatedprimary nurse.
[2019-07-25] MEDS: TAMSULOSIN HCL 0.4 MG CAP.ER.24H PO SCH (21:01)
[2019-07-25] MEDS: FAMOTIDINE 20MG TAB 20 MG TAB PO SCH (21:01)
[2019-07-25] MEDS: ATORVASTATIN CALCIUM 20 MG TABLET PO SCH (21:02)
[2019-07-26 04:00] VITALS: BP 125/54
[2019-07-26] MEDS: ACETAMINOPHEN EXTRA STRENGTH 500 MG TABLET PO SCH ×3 (04:30→20:07)
[2019-07-26 06:12] LABS: HEMATOCRIT 25.8 % (42-54); MEAN CORPUSCULAR HEMOGLOBIN 27.2 pg (27.0-33.0); MEAN CORPUSCULAR VOLUME 87.8 fL (79-99); PLATELET COUNT (AUTO) 243 K/uL (130-400); RED BLOOD CELL COUNT(AUTO) 2.94 MIL/uL (4.50-6.20); RED CELL DISTRIBUTION WIDTH 17.5 % (11.0-15.5); WHITE BLOOD COUNT (AUTO) 8.3 K/uL (4.8-10.8)
[2019-07-26] MEDS: LEVOTHYROXINE 125 MCG TABLET PO SCH (06:20)
[2019-07-26] MEDS: INSULIN HUMULIN R 100 UNIT/ML 3ML SQ SCH ×4 (06:21→19:55)
[2019-07-26 08:04] VITALS: BP 135/70
[2019-07-26] MEDS: FUROSEMIDE 40 MG TABLET PO SCH (08:45)
[2019-07-26] MEDS: THIAMINE HCL 100 MG TABLET PO SCH (08:45)
[2019-07-26] MEDS: APIXABAN 2.5 MG TABLET PO SCH ×2 (08:45→20:08)
[2019-07-26] MEDS: POLYETHYLENE GLYCOL 3350 17 GM POWD.PACK PO SCH ×2 (08:45→08:48)
[2019-07-26] MEDS: PREGABALIN 25 MG CAP PO SCH ×2 (08:45→20:08)
[2019-07-26] MEDS: FOLIC ACID 1 MG TABLET PO SCH (08:46)
[2019-07-26] MEDS: DULOXETINE HCL 30 MG CAP PO SCH ×2 (08:46→20:09)
[2019-07-26] MEDS: CELECOXIB 200 MG CAP PO SCH ×2 (08:46→20:09)
[2019-07-26] MEDS: GABAPENTIN 300 MG CAPSULE PO SCH ×3 (08:46→20:10)
[2019-07-26] MEDS: OXYCODONE HCL 5 MG TAB PO PRN (08:47)
[2019-07-26] MEDS: NYSTATIN 100000 UNIT/ML 5ML UDCUP PO SCH ×4 (08:48→20:10)
[2019-07-26] MEDS: ASCORBIC ACID 500 MG TAB PO SCH (08:48)
[2019-07-26] MEDS: VANCOMYCIN 750MG + NS 250 ML IV SCH ×4 (09:00→21:57)
[2019-07-26] MEDS: LORATADINE 10 MG TABLET PO SCH (11:18)
[2019-07-26 11:36] VITALS: BP 127/67
[2019-07-26] MEDS: MULTIVITAMIN WITH MINERALS TABLET PO SCH (15:40)
[2019-07-26] MEDS ORDERED: ALTEPLASE 2 MG/VIAL IVCATH SCH (16:00)
[2019-07-26 16:38] VITALS: BP 125/71
[2019-07-26 19:00] VITALS: BP 131/68
[2019-07-26] MEDS: FAMOTIDINE 20MG TAB 20 MG TAB PO SCH (20:08)
[2019-07-26] MEDS: TAMSULOSIN HCL 0.4 MG CAP.ER.24H PO SCH (20:09)
[2019-07-26] MEDS: ATORVASTATIN CALCIUM 20 MG TABLET PO SCH (20:10)
[2019-07-26 23:00] VITALS: BP 124/60
[2019-07-27 03:00] VITALS: BP 141/64
[2019-07-27] MEDS: ACETAMINOPHEN EXTRA STRENGTH 500 MG TABLET PO SCH ×3 (04:33→20:59)
[2019-07-27] MEDS: LEVOTHYROXINE 125 MCG TABLET PO SCH (05:34)
[2019-07-27] MEDS: INSULIN HUMULIN R 100 UNIT/ML 3ML SQ SCH ×4 (06:21→21:00)
[2019-07-27 07:46] VITALS: BP 120/61
[2019-07-27] MEDS: POLYETHYLENE GLYCOL 3350 17 GM POWD.PACK PO SCH ×2 (09:00)
[2019-07-27] MEDS: LORATADINE 10 MG TABLET PO SCH (10:29)
[2019-07-27] MEDS: APIXABAN 2.5 MG TABLET PO SCH ×2 (10:29→20:57)
[2019-07-27] MEDS: ASCORBIC ACID 500 MG TAB PO SCH (10:30)
[2019-07-27] MEDS: DULOXETINE HCL 30 MG CAP PO SCH ×2 (10:30→20:57)
[2019-07-27] MEDS: FOLIC ACID 1 MG TABLET PO SCH (10:30)
[2019-07-27] MEDS: MULTIVITAMIN WITH MINERALS TABLET PO SCH (10:31)
[2019-07-27] MEDS: PREGABALIN 25 MG CAP PO SCH ×2 (10:31→20:57)
[2019-07-27] MEDS: FUROSEMIDE 40 MG TABLET PO SCH (10:31)
--- NOTE | 2019-07-27 10:31 | NUR ---
CM NOTE PER MARIIA JADE, PENDING AUTHORIZATION. UPDATED CLINICALS AND PT NOTES FAXED AND CONFIRMED RECEIVED. WILL FOLLOW UP ACCORDINGLY, PRIMARY NURSE, RONI ROJAS, MADE AWARE.
[2019-07-27] MEDS: THIAMINE HCL 100 MG TABLET PO SCH (10:32)
[2019-07-27 10:47] VITALS: BP 133/53
[2019-07-27] MEDS: VANCOMYCIN 750MG + NS 250 ML IV SCH ×4 (10:50→21:00)
[2019-07-27] MEDS: NYSTATIN 100000 UNIT/ML 5ML UDCUP PO SCH ×4 (11:00→20:58)
[2019-07-27] MEDS: CELECOXIB 200 MG CAP PO SCH ×2 (11:01→20:58)
[2019-07-27] MEDS: GABAPENTIN 300 MG CAPSULE PO SCH ×3 (11:02→20:58)
[2019-07-27] MEDS: FERROUS SULFATE 325 MG TABLET.DR PO SCH (11:02)
[2019-07-27 16:02] VITALS: BP 116/69
[2019-07-27] MEDS ORDERED: BISACODYL 10 MG SUPP.RECT RC PRN (17:00)
--- NOTE | 2019-07-27 19:20 | NUR ---
MD DR FLORES IN TO SEE PT AND REMOVED HEMOVAC FROM SX SITE. NEW ORDERS GIVEN, PLEASE REFER TO CPOE.
[2019-07-27 20:50] VITALS: BP 142/58
[2019-07-27] MEDS: FAMOTIDINE 20MG TAB 20 MG TAB PO SCH (20:57)
[2019-07-27] MEDS: TAMSULOSIN HCL 0.4 MG CAP.ER.24H PO SCH (20:58)
[2019-07-27] MEDS: ATORVASTATIN CALCIUM 20 MG TABLET PO SCH (20:58)
--- NOTE | 2019-07-27 21:00 | NUR ---
MEDS SHIFT ASSESSMENT DONE, PLEASE REFER TO CHART. DUE MEDS ADMINISTERED, TOLERATED WELL. KEPT RESTED AND COMFORTABLE. CALL LIGHT WITHIN REACH. WILL MONITOR PT. Addendum: 07/27/19 at 2255 by CANDI CRUZ RN RN Amended: Links added.
[2019-07-27 23:38] VITALS: BP 105/52
--- NOTE | 2019-07-28 02:00 | NUR ---
ROUNDS PT RESTING WELL, NO DISTRESS NOTED. KEPT UNDISTURBED. WILL CONTINUE TO MONITOR.
[2019-07-28] MEDS: LEVOTHYROXINE 125 MCG TABLET PO SCH (05:30)
[2019-07-28] MEDS: ACETAMINOPHEN EXTRA STRENGTH 500 MG TABLET PO SCH ×2 (05:31→14:20)
--- NOTE | 2019-07-28 05:35 | NUR ---
MEDS PT ALREADY AWAKE, V/S AND BLOOD SUGAR MONITORED, STABLE. DUE MEDS ADMINISTERED, TOLERATED WELL. FOR MORE CARE.
[2019-07-28 05:38] VITALS: BP 139/60
[2019-07-28] MEDS: INSULIN HUMULIN R 100 UNIT/ML 3ML SQ SCH ×3 (05:48→16:30)
[2019-07-28 07:41] VITALS: BP 135/57
[2019-07-28] MEDS: APIXABAN 2.5 MG TABLET PO SCH (08:59)
[2019-07-28] MEDS: POLYETHYLENE GLYCOL 3350 17 GM POWD.PACK PO SCH ×2 (08:59→09:00)
[2019-07-28] MEDS: LORATADINE 10 MG TABLET PO SCH (08:59)
[2019-07-28] MEDS: CELECOXIB 200 MG CAP PO SCH (08:59)
[2019-07-28] MEDS: MULTIVITAMIN WITH MINERALS TABLET PO SCH (09:00)
[2019-07-28] MEDS: FUROSEMIDE 40 MG TABLET PO SCH (09:00)
[2019-07-28] MEDS: NYSTATIN 100000 UNIT/ML 5ML UDCUP PO SCH ×2 (09:00→14:21)
[2019-07-28] MEDS: DULOXETINE HCL 30 MG CAP PO SCH (09:00)
[2019-07-28] MEDS: THIAMINE HCL 100 MG TABLET PO SCH (09:00)
[2019-07-28] MEDS: GABAPENTIN 300 MG CAPSULE PO SCH ×2 (09:00→14:20)
[2019-07-28] MEDS: PREGABALIN 25 MG CAP PO SCH (09:01)
[2019-07-28] MEDS: ASCORBIC ACID 500 MG TAB PO SCH (09:01)
[2019-07-28] MEDS: FOLIC ACID 1 MG TABLET PO SCH (09:01)
--- NOTE | 2019-07-28 09:15 | NUR ---
JUST REC'D ACCEPTANCE FOR [facility] FOR THIS PATIENT Addendum: 07/28/19 at 0918 by LAVERN MADRIGAL RN CM Amended: Links added.
[2019-07-28] MEDS: VANCOMYCIN 750MG + NS 250 ML IV SCH ×2 (10:40)
[2019-07-28 11:07] VITALS: BP 137/56
--- NOTE | 2019-07-28 16:40 | NUR ---
DISCHARGE PATIENT GIVEN DISCHARGE INSTRUCTIONS VIA TEACH BACK. PICC LINE TO SARAI, DOUBLE LUMEN PATENT. DRESSING TO RIGHT HIP INCISION CHANGED AND NEEDS TO BE REMOVED ON 07/31/19. PATIENT TO TRANSFER TO [facility] IN [place] FOR PHYSICAL THERAPY, ANTICOAGULATION AND IV ANTIBIOTICS. REPORT GIVEN TO BOB BERNARDO. ABDUCTION PILLOW IN PLACE. PATIENT TO CONTINUE WITH ELIQUIS BID AND FOLLOW UP WITH DR. FLORES IN 3 WEEKS. EMS PENDING TO TRANSFER PATIENT TO [facility]. PATIENT STABLE AT THIS TIME.
--- NOTE | 2019-07-28 17:45 | NUR ---
EMS ( [facility]) PRESENT TO TRANSPORT PATIENT TO [facility] IN [place].
== END 2019-07-28 17:45 | DRG 464 ==
LOC: EDH 10:01 → EDHIP 13:49 → OBSVTOIN 13:49 → 3AH 16:21
PROVIDERS: ADMIT Internal Medicine; ATTEND Internal Medicine
PROC: 3E0T3BZ Introduction of Anesthetic Agent into Peripheral Nerves and Plexi, Percutaneous Approach (ICD-10-PCS; 2019-07-20)
PROC: 0SP90JZ Removal of Synthetic Substitute from Right Hip Joint, Open Approach (ICD-10-PCS; principal; 2019-07-20 13:45)
PROC: 0SH908Z Insertion of Spacer into Right Hip Joint, Open Approach (ICD-10-PCS; 2019-07-20 13:45)
PROC: 30233N1 Transfusion of Nonautologous Red Blood Cells into Peripheral Vein, Percutaneous Approach (ICD-10-PCS; 2019-07-20 13:45)
PROC: 02HV33Z Insertion of Infusion Device into Superior Vena Cava, Percutaneous Approach (ICD-10-PCS; 2019-07-21)
PROC: B548ZZA Ultrasonography of Superior Vena Cava, Guidance (ICD-10-PCS; 2019-07-21)
PROC: 0SH908Z Insertion of Spacer into Right Hip Joint, Open Approach (ICD-10-PCS; 2019-07-24)
PROC: 0SP908Z Removal of Spacer from Right Hip Joint, Open Approach (ICD-10-PCS; 2019-07-24 13:47)
DX: T84.51XA Infection and inflammatory reaction due to internal right hip prosthesis, initial encounter (principal); E44.0 Moderate protein-calorie malnutrition; E87.2 Acidosis; L02.415 Cutaneous abscess of right lower limb; L03.115 Cellulitis of right lower limb; N17.9 Acute kidney failure, unspecified; D62 Acute posthemorrhagic anemia; E87.0 Hyperosmolality and hypernatremia; M86.9 Osteomyelitis, unspecified; E03.9 Hypothyroidism, unspecified; E11.22 Type 2 diabetes mellitus with diabetic chronic kidney disease; N18.9 Chronic kidney disease, unspecified; I12.9 Hypertensive chronic kidney disease with stage 1 through stage 4 chronic kidney disease, or unspecified chronic kidney disease; F10.20 Alcohol dependence, uncomplicated; M19.90 Unspecified osteoarthritis, unspecified site; E11.69 Type 2 diabetes mellitus with other specified complication; R29.6 Repeated falls; E66.01 Morbid (severe) obesity due to excess calories; Y83.1 Surgical operation with implant of artificial internal device as the cause of abnormal reaction of the patient, or of later complication, without mention of misadventure at the time of the procedure; Z96.612 Presence of left artificial shoulder joint; Z96.611 Presence of right artificial shoulder joint; Z96.643 Presence of artificial hip joint, bilateral; Z96.652 Presence of left artificial knee joint; Z68.33 Body mass index [BMI] 33.0-33.9, adult; Z89.422 Acquired absence of other left toe(s); Z87.891 Personal history of nicotine dependence; Z79.01 Long term (current) use of anticoagulants; Z79.84 Long term (current) use of oral hypoglycemic drugs; Z79.899 Other long term (current) drug therapy; Z86.14 Personal history of Methicillin resistant Staphylococcus aureus infection; Z88.0 Allergy status to penicillin; Z88.8 Allergy status to other drugs, medicaments and biological substances; Z80.3 Family history of malignant neoplasm of breast; Z82.0 Family history of epilepsy and other diseases of the nervous system; Z82.49 Family history of ischemic heart disease and other diseases of the circulatory system; Z86.718 Personal history of other venous thrombosis and embolism
CPT/HCPCS: 36415; 36430; 71045; 72193; 73502; 73503; 80048; 80053; 80202; 81003; 82948; 83036; 83605; 85014; 85018; 85025; 85027; 85610; 85651; 85730; 86140; 86850; 86900; 86901; 86922; 87040; 87070; 87076; 87077; 87186; 87205; 88300; 88304; 93005; 97039; A6250; C1894; G0378; J0330; J0696; J0713; J1200; J1644; J1650; J1815; J1885; J2001; J2250; J2405; J2543; J2704; J2710; J2795; J2997; J3010; J3370; J3490; J7030; J7050; J7120; P9016; P9045; Q0163; Q9967

== ENCOUNTER 2019-09-06 08:52 | Inpatient (IN) | payer OTHER, MEDICARE ==
[~2019-09-06] VITALS: Ht 180.3 cm; Wt 112.5 kg
[~2019-09-06 08:52] MED LIST changes: +ACET325T51 PO; +ASCO500C18 PO; +ATOR20TA65 PO; -CICL6.6S8 TP; -DIPH25TA20 PO; +FERR325T22 PO; -LEVO100T12 PO; +LEVO125T11 PO; -LORA10CA9 PO; -METO25TA3 PO; +THIA100T91 PO; +TRAM50TA4 PO; -TYL3 PO; -WARF-67 PO; +[UNRECOGNIZED DRUG - CODE] PO
[2019-09-06 10:05] VITALS: BP 134/54
[2019-09-06] MEDS ORDERED: GUAI100S13 PO (10:26)
[2019-09-06] MEDS ORDERED: ASCO500T10 PO (10:26)
[2019-09-06] MEDS ORDERED: CELE-84 PO (10:26)
[2019-09-06] MEDS ORDERED: LACT10SO9 PO (10:26)
[2019-09-06] MEDS ORDERED: BISA10SU11 RC (10:26)
[2019-09-06] MEDS ORDERED: FOLI1 PO (10:26)
[2019-09-06] MEDS ORDERED: ACET-3194 PO (10:26)
[2019-09-06] MEDS ORDERED: CALC-125 PO (10:26)
[2019-09-06] MEDS ORDERED: APIX2.5T PO (10:26)
[2019-09-06] MEDS ORDERED: LORA10TA7 PO (10:27)
[2019-09-06] MEDS ORDERED: TRAM50TA4 PO (10:27)
[2019-09-06] MEDS ORDERED: NITR0.4T50 SL (10:27)
[2019-09-06] MEDS ORDERED: MELA5CAP PO (10:27)
[2019-09-06] MEDS ORDERED: PREG150C PO (10:27)
[2019-09-06] MEDS ORDERED: POLY17PO4 PO (10:27)
[2019-09-06] MEDS ORDERED: TRAM100T40 PO (10:27)
[2019-09-06 10:57] LABS: BASOPHILS % (AUTO) 0.2 % (0.0-5.0); EOSINOPHILS % (AUTO) 2.3 % (0.0-8.0); HEMATOCRIT 29.6 % (42-54); LYMPHOCYTES % (AUTO) 10.5 % (21.0-51.0); MEAN CORPUSCULAR HEMOGLOBIN 25.5 pg (27.0-33.0); MEAN CORPUSCULAR HGB CONC 29.7 g/dL (32.0-36.0); MEAN CORPUSCULAR VOLUME 85.8 fL (79-99); MONOCYTES % (AUTO) 9.3 % (3.0-13.0); NEUTROPHILS % (AUTO) 77.4 % (40.0-77.0); PLATELET COUNT (AUTO) 315 K/uL (130-400); RED BLOOD CELL COUNT(AUTO) 3.45 MIL/uL (4.50-6.20); RED CELL DISTRIBUTION WIDTH 16.9 % (11.0-15.5); WHITE BLOOD COUNT (AUTO) 9.2 K/uL (4.8-10.8)
[2019-09-06 11:21] LABS: CREATININE 1.3 mg/dL (0.5-1.5); POTASSIUM 4.1 mmol/L (3.5-5.1)
[2019-09-06 11:24] LABS: INR 1.02 (0.85-1.15)
[2019-09-06] MEDS ORDERED: VANCOMYCIN PROTOCOL PER PHARMACY IV SCH (11:45)
[2019-09-06] MEDS ORDERED: NITROGLYCERIN 0.4 MG SL TAB SL SCH (12:00)
[2019-09-06] MEDS ORDERED: ACETAMINOPHEN EXTENDED RELEASE 650 MG TABLET PO PRN (12:00)
[2019-09-06] MEDS ORDERED: COMPOUND IV REFRIGERATED 1 EACH IVSOLN MISC PRN (12:00)
[2019-09-06] MEDS ORDERED: BISACODYL 10 MG SUPP.RECT RC PRN (12:00)
[2019-09-06] MEDS ORDERED: LACTULOSE 20 GM/30 ML UDCUP PO PRN (12:00)
[2019-09-06] MEDS ORDERED: GUAIFENESIN SUGAR-FREE 100 MG/5 ML UDCUP PO PRN (12:00)
[2019-09-06] MEDS ORDERED: TRAMADOL HCL 50 MG TABLET PO PRN (12:00)
[2019-09-06] MEDS: VANCOMYCIN 1.5 GM in SODIUM CHLORIDE 0.9% 250 ML IV SCH ×2 (12:15→23:22)
[2019-09-06 16:15] VITALS: BP 126/57
[2019-09-06 19:09] VITALS: BP 116/55
[2019-09-06] MEDS: ATORVASTATIN CALCIUM 20 MG TABLET PO SCH (20:06)
[2019-09-06] MEDS: CALCIUM CARBONATE 500 MG TABLET PO SCH (20:07)
[2019-09-06] MEDS: PREGABALIN 75 MG CAPSULE PO SCH (20:07)
[2019-09-06] MEDS: DULOXETINE HCL 30 MG CAP PO SCH (20:07)
[2019-09-06] MEDS: CELECOXIB 200 MG CAP PO SCH (20:07)
[2019-09-06] MEDS: TRAMADOL HCL 50 MG TABLET PO PRN (20:11)
[2019-09-06] MEDS ORDERED: DIPHENHYDRAMINE HCL 25 MG CAPSULE PO PRN (20:15)
[2019-09-06] MEDS ORDERED: DEXTROSE 50%-WATER 50 ML DISP.SYRIN IV PRN (22:15)
[2019-09-06] MEDS ORDERED: GLUCAGON 1MG KIT 1 MG ML IM PRN (22:15)
[2019-09-06 23:23] VITALS: BP 119/56
[2019-09-06] MEDS: SODIUM CHLORIDE 0.9% 1000ML 1,000 ML IV SCH (23:39)
[2019-09-07] VITALS (21 sets, daily range): BP systolic 97–139; BP diastolic 36–67
[2019-09-07] MEDS ORDERED: HYDROMORPHONE HCL 2 MG/ML VIAL ONE (01:51)
[2019-09-07] MEDS: HYDROMORPHONE HCL 2 MG/ML VIAL IVP PRN ×4 (03:08→22:49)
[2019-09-07 04:40] LABS: HEMATOCRIT 28.4 % (42-54); MEAN CORPUSCULAR HEMOGLOBIN 25.5 pg (27.0-33.0); MEAN CORPUSCULAR HGB CONC 29.6 g/dL (32.0-36.0); MEAN CORPUSCULAR VOLUME 86.1 fL (79-99); RED BLOOD CELL COUNT(AUTO) 3.3 MIL/uL (4.50-6.20); RED CELL DISTRIBUTION WIDTH 16.9 % (11.0-15.5); WHITE BLOOD COUNT (AUTO) 6.8 K/uL (4.8-10.8)
[2019-09-07 04:49] LABS: CREATININE 1.3 mg/dL (0.5-1.5); CRP QUANTITATIVE 85.9 mg/L (0.00-9.0); POTASSIUM 3.7 mmol/L (3.5-5.1)
[2019-09-07] MEDS: INSULIN HUMULIN R 100 UNIT/ML 3ML SQ SCH ×3 (05:29→16:30)
[2019-09-07] MEDS ORDERED: CEFAZOLIN SODIUM 1 GM VIAL IVP PRN (06:00)
[2019-09-07] MEDS ORDERED: TRANEXAMIC ACID 1000MG/10ML IV SCH (06:00)
[2019-09-07] MEDS ORDERED: VANCOMYCIN 1GM+NS 250ML 250 ML IV SCH (06:00)
[2019-09-07] MEDS: LEVOTHYROXINE 125 MCG TABLET PO SCH (06:05)
[2019-09-07] MEDS: CELECOXIB 200 MG CAP PO SCH ×2 (09:00→22:48)
[2019-09-07] MEDS: FOLIC ACID 1 MG TABLET PO SCH (09:00)
[2019-09-07] MEDS: FUROSEMIDE 40 MG TABLET PO SCH (09:00)
[2019-09-07] MEDS: DULOXETINE HCL 30 MG CAP PO SCH ×2 (09:00→22:48)
[2019-09-07] MEDS: MULTIVITAMIN WITH MINERALS TABLET PO SCH (09:00)
[2019-09-07] MEDS: PREGABALIN 75 MG CAPSULE PO SCH ×2 (09:00→22:48)
[2019-09-07] MEDS: THIAMINE HCL 100 MG TABLET PO SCH (09:00)
[2019-09-07] MEDS: POLYETHYLENE GLYCOL 3350 17 GM POWD.PACK PO SCH (09:00)
[2019-09-07] MEDS ORDERED: TAMSULOSIN HCL 0.4 MG CAP.ER.24H PO SCH (09:00)
[2019-09-07] MEDS: ASCORBIC ACID 500 MG TAB PO SCH (09:00)
[2019-09-07] MEDS: FERROUS SULFATE 325 MG TABLET.DR PO SCH (09:00)
[2019-09-07] MEDS: CALCIUM CARBONATE 500 MG TABLET PO SCH (09:00)
[2019-09-07] MEDS: LORATADINE 10 MG TABLET PO SCH (09:00)
[2019-09-07] MEDS: VANCOMYCIN 1.5 GM in SODIUM CHLORIDE 0.9% 250 ML IV SCH (12:00)
[2019-09-07] MEDS ORDERED: CLINDAMYCIN 900 MG/D5% WATER 50 ML IV ONE (12:41)
--- NOTE | 2019-09-07 12:45 | NUR ---
POTENTIAL FOR INFECTION: CLIPPED RIGHT HIP / RIGHT UPPER LEG PER TATY CRAMER, FOLLOWED BY WIPING WITH KM: 2% CHLORHEXIDINE GLUCONATE CLOTH PATIENTS PRE-OP SKIN PREP.
[2019-09-07] MEDS: SODIUM CHLORIDE 0.9% 1000ML 1,000 ML IV SCH ×2 (12:46→22:48)
[2019-09-07] MEDS ORDERED: VANCOMYCIN HCL 1 GM VIAL ONE ×2 (13:20→20:06)
--- NOTE | 2019-09-07 14:43 | NUR ---
PICC LINE TO RIGHT UPPER ARM KINKED AT INSERTION SITE. REMOVED OLD DRESSING CLEANED AREA WITH CHLORHEXIDINE, ALLOWED TO DRY AND REDRESSED IT USING ASEPTIC TECHNIQUE. LINE FLUSHING AND GOOD BLOOD RETURN AFTER
[2019-09-07] MEDS ORDERED: ROPIVACAINE 0.5% 5MG/ML 30ML IJ ONE (15:25)
[2019-09-07] MEDS ORDERED: LIDOCAINE PF 2% 5ML ABBOJECT ONE (15:27)
[2019-09-07] MEDS ORDERED: PROPOFOL 10 MG/ML 20ML VIAL IV ONE (15:29)
[2019-09-07] MEDS ORDERED: FENTANYL CITRATE PF 50 MCG/1 ML 2ML VIAL ONE (15:29)
[2019-09-07] MEDS ORDERED: MIDAZOLAM HCL 1 MG/ML 2ML VIAL ONE (15:29)
[2019-09-07] MEDS ORDERED: DEXAMETHASONE SOD PHOSPHATE 10MG/ML 1ML VIAL ONE (15:29)
[2019-09-07] MEDS ORDERED: ONDANSETRON HCL 4 MG/2 ML VIAL ONE (15:29)
[2019-09-07] MEDS ORDERED: SUCCINYLCHOLINE CHLORIDE 20 MG/ML 10 ML VIAL ONE (15:30)
[2019-09-07] MEDS ORDERED: ROCURONIUM 10MG/1ML SYR 10 MG/ML ML ONE ×2 (15:30→17:07)
--- NOTE | 2019-09-07 15:40 | NUR ---
DCP CM met with pt, pt currently not in room, in procedure. CM called pt's caregiver on facesheet, spoke to Annalise Miller discussed dcp. As per caregiver pt is assist with ADL's, lives at home alone. Has provider 38hrs/wk, walker, bedside commode. Prior to admission pt was at [facility] short term, verifed w/[facility]. Denies any other equipments/services, pt declined [facility] placement last admission and only wanted [facility]. Will follow up with pt once surgery done and pt more stable. For now dcp to home w/HH vs SNF. CM to cont to ofllow up. Addendum: 09/07/19 at 1542 by SYL BANDA LVN CM Amended: Links added.
[2019-09-07] MEDS ORDERED: EPHEDRINE SULFATE 50 MG/ML AMPULE ONE (16:46)
[2019-09-07] MEDS ORDERED: HETASTARCH IN 0.9 % NACL 500 ML IV ONE (16:55)
[2019-09-07] MEDS ORDERED: PHENYLEPHRINE HCL 10 MG/ML 1ML VIAL IV ONE (16:59)
[2019-09-07] MEDS ORDERED: FENTANYL CITRATE PF 50 MCG/1 ML 5ML AMP IV ONE (17:07)
[2019-09-07] MEDS: ATORVASTATIN CALCIUM 20 MG TABLET PO SCH ×2 (17:24→22:48)
[2019-09-07] MEDS ORDERED: ALBUMIN (HUMAN) 25% 100 ML IV ONE (17:48)
[2019-09-07] MEDS: **HM** MELATONIN 5MG PO SCH (21:00)
[2019-09-07] MEDS ORDERED: POTASSIUM CHLORIDE 10% ELIXIR 20 MEQ/15 ML UDCUP PO PRN (21:15)
[2019-09-07] MEDS ORDERED: KETOROLAC TROMETHAMINE 15MG/ML IV PRN (21:15)
[2019-09-07] MEDS ORDERED: DiphenhydrAMINE HCL 50 MG/ML VIAL IVP PRN (21:15)
[2019-09-07] MEDS ORDERED: POTASSIUM CHLORIDE 20MEQ/100ML 100 ML IV PRN (21:15)
[2019-09-07] MEDS ORDERED: FERROUS FUMARATE 324 MG TABLET PO PRN (21:15)
[2019-09-07] MEDS ORDERED: POTASSIUM CHLORIDE 20 MEQ ERTAB PO PRN (21:15)
[2019-09-07] MEDS ORDERED: CALCIUM CARBONATE 500 MG TABLET PO PRN (21:15)
[2019-09-07] MEDS ORDERED: LIDOCAINE HCL-MPF 1% 2ML VIAL IV PRN (21:15)
[2019-09-07] MEDS ORDERED: ONDANSETRON HCL 4 MG/2 ML VIAL IVP PRN (21:15)
--- NOTE | 2019-09-07 22:25 | NUR ---
POST OP PATIENT ARRIVED TO ROOM VIA BED AAOX3 WITH O2 VIA NASAL CANNULA AT 2 LPM. DRESSING TO RIGHT HIP DRY AND INTACT WITH HEMOVAC IN PLACE TO RIGHT HIP. PATIENT ABLE TO MOVE RIGHT TOES AND HAS SENSATION TO RIGHT LEG. PATINE DOES COMPLAIN OF PAIN TO RIGHT LEG SEE MARS. ALL QUESTIONS AND CONCERNS ADDRESSED WITH PATIENT.
[2019-09-08] VITALS (9 sets, daily range): BP systolic 96–116; BP diastolic 42–63
[2019-09-08] MEDS: VANCOMYCIN 1.5 GM in SODIUM CHLORIDE 0.9% 250 ML IV SCH ×2
--- NOTE | 2019-09-08 01:00 | NUR ---
DANGLE PATIENT ASSISTED TO EDGE OF BED TO DANGLE LEGS PER PROTOCOL. PATIENT TOLERATED WELL.
[2019-09-08] MEDS: HYDROMORPHONE HCL 2 MG/ML VIAL IVP PRN ×3 (01:36→05:41)
[2019-09-08] MEDS: CLINDAMYCIN 900 MG/D5% WATER 50 ML IV SCH ×2 (02:21→09:34)
[2019-09-08 02:30] LABS: SPECIMENTYPE,BODY FLUID OTHER
[2019-09-08 02:31] LABS: APPEARANCE BODY FLUID BLOODY (CLEAR); COLOR,BODY FLUID RED (LT YELLOW); TOTAL VOLUME,BODY FLUID 20 mL
[2019-09-08 02:32] LABS: BODY FLUID WBC 812 /cu. mm.
[2019-09-08 02:33] LABS: BODY FLUID RBC 36250 /cu. mm.
[2019-09-08 02:44] LABS: BF LYMPHOCYTE 28 %; BF MONOCYTE 2 %
[2019-09-08] MEDS: VANCOMYCIN 1GM+NS 250ML 250 ML IV SCH ×2 (03:21→14:45)
[2019-09-08 06:15] LABS: HEMATOCRIT 21.9 % (42-54); MEAN CORPUSCULAR HEMOGLOBIN 25.2 pg (27.0-33.0); MEAN CORPUSCULAR HGB CONC 29.7 g/dL (32.0-36.0); MEAN CORPUSCULAR VOLUME 84.9 fL (79-99); RED BLOOD CELL COUNT(AUTO) 2.58 MIL/uL (4.50-6.20); RED CELL DISTRIBUTION WIDTH 16.8 % (11.0-15.5); WHITE BLOOD COUNT (AUTO) 5.9 K/uL (4.8-10.8)
[2019-09-08 06:32] LABS: CREATININE 1.2 mg/dL (0.5-1.5); POTASSIUM 4.4 mmol/L (3.5-5.1)
[2019-09-08] MEDS: INSULIN HUMULIN R 100 UNIT/ML 3ML SQ SCH ×4 (07:13→21:00)
[2019-09-08] MEDS: LEVOTHYROXINE 125 MCG TABLET PO SCH (08:22)
[2019-09-08] MEDS: FAMOTIDINE 20MG TAB 20 MG TAB PO SCH ×2 (08:23→21:58)
[2019-09-08] MEDS: CELECOXIB 200 MG CAP PO SCH ×2 (08:23→21:59)
[2019-09-08] MEDS: THIAMINE HCL 100 MG TABLET PO SCH (08:23)
[2019-09-08] MEDS: POLYETHYLENE GLYCOL 3350 17 GM POWD.PACK PO SCH (08:23)
[2019-09-08] MEDS: ASCORBIC ACID 500 MG TAB PO SCH (08:23)
[2019-09-08] MEDS: LORATADINE 10 MG TABLET PO SCH (08:23)
[2019-09-08] MEDS: MULTIVITAMIN WITH MINERALS TABLET PO SCH (08:23)
[2019-09-08] MEDS: APIXABAN 2.5 MG TABLET PO SCH ×2 (08:24→21:59)
[2019-09-08] MEDS: FUROSEMIDE 40 MG TABLET PO SCH (08:24)
[2019-09-08] MEDS: TAMSULOSIN HCL 0.4 MG CAP.ER.24H PO SCH (08:24)
[2019-09-08] MEDS: PREGABALIN 75 MG CAPSULE PO SCH ×2 (08:24→21:58)
[2019-09-08] MEDS: DULOXETINE HCL 30 MG CAP PO SCH ×2 (08:24→21:58)
[2019-09-08] MEDS: FOLIC ACID 1 MG TABLET PO SCH (08:26)
[2019-09-08] MEDS: SODIUM CHLORIDE 0.9% 1000ML 1,000 ML IV SCH ×2 (09:35→17:02)
--- NOTE | 2019-09-08 11:45 | NUR ---
DC PLAN VISITED WITH INSURANCE. PATIENT GAVE VERBAL CONSENT FOR [facility]. PATIENT ON CONTACT ISOLATION. PACKET STARTED SENT TO [facility]. PENDING PT NOTES. PT HOLD THIS MORNING RECEIVING 2 UNITS OF BLOOD. LET [facility] KNOW OF PENDING NOTES AND BLOOD TRANSFUSION. MELY WILL CONTINUE TO FOLLOW. Addendum: 09/08/19 at 1147 by SUSANNAH LORENZO RN CM Amended: Links added.
--- NOTE | 2019-09-08 15:14 | NUR ---
Order in chart to remove nonfunctioning PICC line. Per report from primary nurse "Kareem" pt will not require PICC for IV abx after discharge, and currently working PIV. After explaining procedure to pt, pt was placed in supine position with right arm extended. PICC removed using sterile technique, no resistance, tip intact. Pressure held with sterile 4x4's and gloved hands for 3 minutes. Hemostasis achieved. Dressed with sterile 4x4's and op site. Raised HOB and placed call light and bsd table in easy reach.
[2019-09-08] MEDS: TRAMADOL HCL 50 MG TABLET PO PRN ×2 (15:41→21:58)
[2019-09-08] MEDS: **HM** MELATONIN 5MG PO SCH (21:00)
[2019-09-08] MEDS: ATORVASTATIN CALCIUM 20 MG TABLET PO SCH (21:58)
[2019-09-09] VITALS (7 sets, daily range): BP systolic 96–117; BP diastolic 42–62
[2019-09-09 05:42] LABS: HEMATOCRIT 24.4 % (42-54); MEAN CORPUSCULAR HEMOGLOBIN 26.7 pg (27.0-33.0); MEAN CORPUSCULAR HGB CONC 31.1 g/dL (32.0-36.0); MEAN CORPUSCULAR VOLUME 85.6 fL (79-99); PLATELET COUNT (AUTO) 268 K/uL (130-400); RED BLOOD CELL COUNT(AUTO) 2.85 MIL/uL (4.50-6.20); RED CELL DISTRIBUTION WIDTH 16.2 % (11.0-15.5); WHITE BLOOD COUNT (AUTO) 13.9 K/uL (4.8-10.8)
[2019-09-09 05:55] LABS: CREATININE 1.2 mg/dL (0.5-1.5)
[2019-09-09] MEDS: INSULIN HUMULIN R 100 UNIT/ML 3ML SQ SCH ×4 (07:30→21:00)
[2019-09-09 07:48] LABS: BASOPHILS % (MANUAL) 1 % (0-2); LYMPHOCYTES % (MANUAL) 16 % (22-44); MONOCYTES % (MANUAL) 8 % (2-9); SEGMENTED NEUTROPHILS % 75 % (40-70)
[2019-09-09 07:49] LABS: MAN.DIFF COMMENT-IMPRESSION MANUAL DIFFERENTIAL; PLATELET MORPHOLOGY COMMENT ADEQUATE
[2019-09-09] MEDS: PREGABALIN 75 MG CAPSULE PO SCH ×2 (08:22→20:27)
[2019-09-09] MEDS: FOLIC ACID 1 MG TABLET PO SCH (08:23)
[2019-09-09] MEDS: LORATADINE 10 MG TABLET PO SCH (08:23)
[2019-09-09] MEDS: TAMSULOSIN HCL 0.4 MG CAP.ER.24H PO SCH (08:23)
[2019-09-09] MEDS: DULOXETINE HCL 30 MG CAP PO SCH ×2 (08:23→20:28)
[2019-09-09] MEDS: FUROSEMIDE 40 MG TABLET PO SCH (08:23)
[2019-09-09] MEDS: APIXABAN 2.5 MG TABLET PO SCH ×2 (08:23→20:28)
[2019-09-09] MEDS: MULTIVITAMIN WITH MINERALS TABLET PO SCH (08:23)
[2019-09-09] MEDS: FAMOTIDINE 20MG TAB 20 MG TAB PO SCH (08:23)
[2019-09-09] MEDS: THIAMINE HCL 100 MG TABLET PO SCH (08:23)
[2019-09-09] MEDS: ASCORBIC ACID 500 MG TAB PO SCH (08:23)
[2019-09-09] MEDS: CELECOXIB 200 MG CAP PO SCH ×2 (08:24→20:28)
[2019-09-09] MEDS: POLYETHYLENE GLYCOL 3350 17 GM POWD.PACK PO SCH (08:24)
[2019-09-09] MEDS: FERROUS SULFATE 325 MG TABLET.DR PO SCH (08:24)
[2019-09-09] MEDS: LEVOTHYROXINE 125 MCG TABLET PO SCH (08:24)
--- NOTE | 2019-09-09 08:33 | NUR ---
PATIENT COMFORTABLE IN BED, WATCHING VIDEOS ON HIS PHONE. PAIN /10 DESCRIBED ACUTE WHEN MOVING. DENIES TINGLING OR NUMBNESS TO BOTH EXTREMITIES. PATIENT STATES LAST BM WAS ON 09/06. REFUSES TO DRINK MIRALAX RIGHT NOW. MIRALAX LEFT AT THE SIDE OF THE BED FOR LATER.
[2019-09-09] MEDS ORDERED: FUROSEMIDE 10 MG/ML 2ML VIAL IV SCH (09:30)
--- NOTE | 2019-09-09 12:36 | NUR ---
HEMOVAC REMOVED PER DR FLORES ORDERS. TIP OF TUBING INTACT. NO RESISTANCE NOTED. PRESSURE APPLIED TO SITE FOR 1 MINUTE. 4X4 GAUZE APPLIED AND TEGADERM ON TOP. PATIENT TOLERATED WELL, WILL CONTINUE TO MONITOR CLOSELY.
--- NOTE | 2019-09-09 13:08 | NUR ---
RASHID CHIANG CALLED SAID PATIENT ACCEPTED TO [facility] 09/09/19 AT 1305. PATIENT RECEIVING TWO UNITS OF BLOOD TODAY NOT TRANSFERRING. POSSIBLE TOMORROW. LET REP KNOW. Addendum: 09/09/19 at 1309 by SUSANNAH LORENZO RN CM Amended: Links added.
--- NOTE | 2019-09-09 20:23 | NUR ---
BLOOD TRANSFUSION PATIENT AWAKE AND ALERT. VOICES ALL NEEDS. NO COMPLAINTS OF PAIN VOICED AT THIS TIME. BLOOD TRANSFUSION COMPLETED. NO ADVERSE REACTIONS NOTED. VITALS STABLE. AFEBRILE. NO SIGNS OF DISTRESS NOTED. RESP EVEN AND UNLABORED. NO SOB NOTED. IN GOOD SPIRITS. PENDING SECOND UNIT OF PACKED RBCS TO BE TRANSFUSED. PATIENT AWARE. NO SIGNS OF DISTRESS NOTED. CALL LIGHT WITHIN REACH. WILL CONTINUE TO BE OBSERVED. Addendum: 09/09/19 at 2333 by LATRICE AYON RN RN Amended: Links added.
[2019-09-09] MEDS: DOXYCYCLINE HYCLATE 100 MG TABLET PO SCH (20:27)
[2019-09-09] MEDS: PANTOPRAZOLE SODIUM 40 MG TABLET.DR PO SCH (20:27)
[2019-09-09] MEDS: **HM** MELATONIN 5MG PO SCH (20:29)
[2019-09-10 03:29] VITALS: BP 122/54
[2019-09-10] MEDS: INSULIN HUMULIN R 100 UNIT/ML 3ML SQ SCH ×3 (05:45→16:30)
[2019-09-10 05:56] LABS: HEMATOCRIT 29.5 % (42-54); MEAN CORPUSCULAR HEMOGLOBIN 27.2 pg (27.0-33.0); MEAN CORPUSCULAR HGB CONC 30.8 g/dL (32.0-36.0); MEAN CORPUSCULAR VOLUME 88.1 fL (79-99); PLATELET COUNT (AUTO) 276 K/uL (130-400); RED BLOOD CELL COUNT(AUTO) 3.35 MIL/uL (4.50-6.20); WHITE BLOOD COUNT (AUTO) 10.7 K/uL (4.8-10.8)
[2019-09-10 07:47] VITALS: BP 125/55
[2019-09-10] MEDS: TRAMADOL HCL 50 MG TABLET PO PRN (08:14)
[2019-09-10] MEDS: APIXABAN 2.5 MG TABLET PO SCH ×2 (08:14→21:56)
[2019-09-10] MEDS: DULOXETINE HCL 30 MG CAP PO SCH ×2 (08:15→21:56)
[2019-09-10] MEDS: DOXYCYCLINE HYCLATE 100 MG TABLET PO SCH ×2 (08:15→21:56)
[2019-09-10] MEDS: CELECOXIB 200 MG CAP PO SCH ×2 (08:15→21:56)
[2019-09-10] MEDS: FOLIC ACID 1 MG TABLET PO SCH (08:15)
[2019-09-10] MEDS: LORATADINE 10 MG TABLET PO SCH (08:15)
[2019-09-10] MEDS: THIAMINE HCL 100 MG TABLET PO SCH (08:15)
[2019-09-10] MEDS: TAMSULOSIN HCL 0.4 MG CAP.ER.24H PO SCH (08:15)
[2019-09-10] MEDS: PANTOPRAZOLE SODIUM 40 MG TABLET.DR PO SCH ×2 (08:15→21:55)
[2019-09-10] MEDS: MULTIVITAMIN WITH MINERALS TABLET PO SCH (08:15)
[2019-09-10] MEDS: ASCORBIC ACID 500 MG TAB PO SCH (08:15)
[2019-09-10] MEDS: PREGABALIN 75 MG CAPSULE PO SCH ×2 (08:15→21:56)
[2019-09-10] MEDS: LEVOTHYROXINE 125 MCG TABLET PO SCH (08:16)
[2019-09-10] MEDS: FUROSEMIDE 40 MG TABLET PO SCH (08:16)
[2019-09-10] MEDS: POLYETHYLENE GLYCOL 3350 17 GM POWD.PACK PO SCH (08:19)
[2019-09-10 08:38] LABS: EOSINOPHILS % (MANUAL) 3 % (1-6); LYMPHOCYTES % (MANUAL) 26 % (22-44); MAN.DIFF COMMENT-IMPRESSION MANUAL DIFFERENTIAL; MONOCYTES % (MANUAL) 7 % (2-9); SEGMENTED NEUTROPHILS % 64 % (40-70)
[2019-09-10 08:39] LABS: PLATELET MORPHOLOGY COMMENT ADEQUATE
[2019-09-10 11:31] VITALS: BP 114/67
[2019-09-10 16:40] VITALS: BP 115/53
[2019-09-10] MEDS ORDERED: HYDR-4457 PO (19:11)
[2019-09-10] MEDS ORDERED: APIX2.5T PO (19:11)
[2019-09-10 19:20] VITALS: BP 128/51
[2019-09-10] MEDS: **HM** MELATONIN 5MG PO SCH (21:00)
[2019-09-10] MEDS: ATORVASTATIN CALCIUM 20 MG TABLET PO SCH (21:55)
--- NOTE | 2019-09-10 22:00 | NUR ---
DISCHARGE PATIENT GIVEN DISCHARGE INSTRUCTIONS AND EDUCATION, INCLUDING SIDE EFFECTS ON NEW PRESCRIBED NORCO. REPORT GIVEN TO LETTY AT [facility]. ALL QUESTIONS ANSWERED. [facility] CONTACT, AWARE OF PATIENT BEING TRANSFERRED. PATIENT AWARE AND IN GOOD SPIRITS. NO SIGNS OF DISTRESS NOTED UPON DISCHARGE. MEDICATED PATIENT FOR PAIN WITH TRAMADOL PER PATIENT REQUEST. PATIENT LEFT VIA WHEELCHAIR. ALL BELONGINGS TAKEN WITH. Addendum: 09/11/19 at 0029 by LATRICE AYON RN RN Amended: Links added.
== END 2019-09-10 21:54 | DRG 467 ==
LOC: EDH 08:52 → EDHIP 09:09 → 3DH 09:17
PROVIDERS: ADMIT Orthopaedic Surgery; ATTEND Orthopaedic Surgery
PROC: 0SP90JZ Removal of Synthetic Substitute from Right Hip Joint, Open Approach (ICD-10-PCS; principal; 2019-09-07 17:34)
PROC: 0KBN0ZZ Excision of Right Hip Muscle, Open Approach (ICD-10-PCS; 2019-09-07 17:34)
PROC: 0SR90J9 Replacement of Right Hip Joint with Synthetic Substitute, Cemented, Open Approach (ICD-10-PCS; 2019-09-07 17:34)
PROC: 30233N1 Transfusion of Nonautologous Red Blood Cells into Peripheral Vein, Percutaneous Approach (ICD-10-PCS; 2019-09-08)
DX: T84.51XA Infection and inflammatory reaction due to internal right hip prosthesis, initial encounter (principal); D62 Acute posthemorrhagic anemia; Y83.1 Surgical operation with implant of artificial internal device as the cause of abnormal reaction of the patient, or of later complication, without mention of misadventure at the time of the procedure; D64.9 Anemia, unspecified; E66.9 Obesity, unspecified; I10 Essential (primary) hypertension; M19.90 Unspecified osteoarthritis, unspecified site; E11.9 Type 2 diabetes mellitus without complications; Z86.14 Personal history of Methicillin resistant Staphylococcus aureus infection; Z68.34 Body mass index [BMI] 34.0-34.9, adult; E03.9 Hypothyroidism, unspecified; Z86.711 Personal history of pulmonary embolism; Z87.891 Personal history of nicotine dependence; Z96.611 Presence of right artificial shoulder joint; Z96.612 Presence of left artificial shoulder joint; Z96.652 Presence of left artificial knee joint; Z96.643 Presence of artificial hip joint, bilateral; E66.01 Morbid (severe) obesity due to excess calories; J30.9 Allergic rhinitis, unspecified; Z98.42 Cataract extraction status, left eye; Z98.41 Cataract extraction status, right eye; Z88.8 Allergy status to other drugs, medicaments and biological substances; Z88.1 Allergy status to other antibiotic agents; Z88.2 Allergy status to sulfonamides
CPT/HCPCS: 36415; 36430; 73503; 80048; 80202; 82948; 85025; 85027; 85610; 85651; 86140; 86850; 86900; 86901; 86922; 87070; 87076; 87205; 88300; 88304; 89051; 96365; 97039; G0378; J0330; J1100; J1170; J1815; J1940; J2001; J2250; J2370; J2405; J2704; J2795; J3010; J3370; J3490; J7030; J7050; P9016; P9047

== ENCOUNTER → 2020-08-12 | Outpatient (CLI) | payer OTHER, MEDICARE ==
[~2020-08-12] MED LIST changes: +ACET-3194 PO; -ACET325T51 PO; +APIX2.5T PO; -ASCO500C18 PO; +ASCO500T10 PO; +BISA10SU11 RC; +CALC-125 PO; +CELE-84 PO; +FOLI1 PO; -GABA-531 PO; +GUAI100S13 PO; +HYDR-4457 PO; +LACT10SO9 PO; +LORA10TA7 PO; +MELA5CAP PO; +NITR0.4T50 SL; +POLY17PO4 PO; +PREG150C PO; -[UNRECOGNIZED DRUG - CODE] PO
== END | disposition home or self-care (01) ==
LOC: RAH 07:32
PROVIDERS: ATTEND Family Medicine
DX: K76.0 Fatty (change of) liver, not elsewhere classified (principal); R16.0 Hepatomegaly, not elsewhere classified; I65.23 Occlusion and stenosis of bilateral carotid arteries; I87.2 Venous insufficiency (chronic) (peripheral)
CPT/HCPCS: 76700; 93880; 93971

== ENCOUNTER → 2020-11-22 | Outpatient (CLI) | payer OTHER, MEDICARE | END | disposition home or self-care (01) | LOC: RAH 12:45 | PROVIDERS: ATTEND Family Medicine | DX: I70.293 Other atherosclerosis of native arteries of extremities, bilateral legs (principal); E11.621 Type 2 diabetes mellitus with foot ulcer; L97.528 Non-pressure chronic ulcer of other part of left foot with other specified severity; E11.51 Type 2 diabetes mellitus with diabetic peripheral angiopathy without gangrene; L97.529 Non-pressure chronic ulcer of other part of left foot with unspecified severity | CPT/HCPCS: 93925 ==

== ENCOUNTER 2021-11-03 09:32 | Observation (INO) | payer OTHER, MEDICARE ==
[~2021-11-03] VITALS: Ht 177.8 cm; Wt 119.3 kg
[2021-11-03] MEDS ORDERED: 0.9% NACL 500ML IV.SOLN 500 ML IV ONE (11:00)
[2021-11-03 11:06] LABS: BASOPHILS % (AUTO) 0.2 % (0.0-5.0); EOSINOPHILS % (AUTO) 1.2 % (0.0-8.0); HEMATOCRIT 32.5 % (42-54); LYMPHOCYTES % (AUTO) 10.1 % (21.0-51.0); MEAN CORPUSCULAR HEMOGLOBIN 27.3 pg (27.0-33.0); MEAN CORPUSCULAR HGB CONC 32.3 g/dL (32.0-36.0); MEAN CORPUSCULAR VOLUME 84.4 fL (79-99); MONOCYTES % (AUTO) 12.6 % (3.0-13.0); NEUTROPHILS % (AUTO) 75.3 % (40.0-77.0); PLATELET COUNT (AUTO) 271 K/uL (130-400); RED BLOOD CELL COUNT(AUTO) 3.85 MIL/uL (4.50-6.20); WHITE BLOOD COUNT (AUTO) 12.6 K/uL (4.8-10.8)
[2021-11-03 11:26] LABS: CREATININE 1.4 mg/dL (0.5-1.5); POTASSIUM 4.1 mmol/L (3.5-5.1)
[2021-11-03 11:31] LABS: ALBUMIN 2.5 g/dL (3.5-5.0); B-TYPE NATRIURETIC PEPTIDE 65 pg/mL (0-100); TOTAL PROTEIN, SERUM 8.2 g/dL (6.0-8.3)
[2021-11-03 11:40] LABS: APPEARANCE,URINE CLEAR (CLEAR); BILIRUBIN,URINE NEGATIVE (NEGATIVE); COLOR,URINE YELLOW (YELLOW); GLUCOSE, URINE (UA) NEGATIVE (NEGATIVE); KETONES,URINE NEGATIVE (NEGATIVE); LEUKOCYTE ESTERASE ,URINE NEGATIVE (NEGATIVE); NITRATE,URINE NEGATIVE (NEGATIVE); OCCULT BLOOD,URINE NEGATIVE (NEGATIVE); PH,URINE 6.5 (5.0-8.0); PROTEIN,URINE TRACE mg/dL (NEGATIVE)
[2021-11-03 11:52] LABS: BACTERIA,URINE Rare /HPF (None Seen); RBC,URINE None Seen /HPF (0-1); SQUAMOUS EPITHELIAL CELL,UR 0-2 /HPF (0-2); WBC,URINE None Seen /HPF (0-1)
[2021-11-03] MEDS ORDERED: POTASSIUM CHLORIDE 10% ELIXIR 20 MEQ/15 ML UDCUP PO PRN (16:00)
[2021-11-03] MEDS ORDERED: DEXTROSE 50%-WATER 50 ML DISP.SYRIN IV PRN (16:00)
[2021-11-03] MEDS ORDERED: LIDOCAINE HCL-MPF 1% 2ML VIAL IV PRN ×2 (16:00)
[2021-11-03] MEDS ORDERED: GLUCAGON 1MG KIT 1 MG ML IM PRN (16:00)
[2021-11-03] MEDS ORDERED: POTASSIUM CHLORIDE 20MEQ/100ML 100 ML IV PRN ×2 (16:00)
[2021-11-03] MEDS: LACTATED RINGERS 1000ML 1,000 ML IV SCH ×2 (16:00→23:28)
[2021-11-03 16:12] LABS: CREATININE 1.3 mg/dL (0.5-1.5); POTASSIUM 3.9 mmol/L (3.5-5.1)
[2021-11-03] MEDS ORDERED: GUAIFENESIN SUGAR-FREE 100 MG/5 ML UDCUP PO PRN (21:30)
[2021-11-03] MEDS ORDERED: LACTULOSE 20 GM/30 ML UDCUP PO PRN (21:30)
[2021-11-03] MEDS ORDERED: BISACODYL 10 MG SUPP.RECT RC PRN (21:30)
[2021-11-03] MEDS ORDERED: ACETAMINOPHEN 650 MG PO PRN (21:30)
[2021-11-03] MEDS ORDERED: NITROGLYCERIN 0.4 MG SL TAB SL SCH (21:30)
[2021-11-03 21:50] VITALS: BP 124/53
[2021-11-03] MEDS ORDERED: ACETAMINOPHEN 325 MG TAB PO PRN ×2 (22:00→22:30)
[2021-11-04 00:48] VITALS: BP 117/40
[2021-11-04] MEDS ORDERED: LEVO137C4 PO (04:27)
[2021-11-04 04:29] VITALS: BP 123/71
[2021-11-04 05:35] LABS: BASOPHILS % (AUTO) 0.4 % (0.0-5.0); EOSINOPHILS % (AUTO) 1.9 % (0.0-8.0); HEMATOCRIT 29.9 % (42-54); MEAN CORPUSCULAR HEMOGLOBIN 26.6 pg (27.0-33.0); MEAN CORPUSCULAR HGB CONC 31.8 g/dL (32.0-36.0); MEAN CORPUSCULAR VOLUME 83.8 fL (79-99); MONOCYTES % (AUTO) 17.9 % (3.0-13.0); NEUTROPHILS % (AUTO) 64.2 % (40.0-77.0); PLATELET COUNT (AUTO) 268 K/uL (130-400); RED BLOOD CELL COUNT(AUTO) 3.57 MIL/uL (4.50-6.20); RED CELL DISTRIBUTION WIDTH 16.8 % (11.0-15.5); WHITE BLOOD COUNT (AUTO) 9.1 K/uL (4.8-10.8)
[2021-11-04 05:42] LABS: CREATININE 1.2 mg/dL (0.5-1.5); POTASSIUM 3.7 mmol/L (3.5-5.1)
[2021-11-04] MEDS: KCL 20 MEQ ERTAB PO PRN ×2 (06:39→17:31)
[2021-11-04 07:08] VITALS: BP 126/50
[2021-11-04] MEDS ORDERED: LORATADINE 10 MG TABLET PO SCH (09:00)
[2021-11-04] MEDS ORDERED: POLYETHYLENE GLYCOL 3350 17 GM POWD.PACK PO SCH (09:00)
[2021-11-04] MEDS ORDERED: FUROSEMIDE 40 MG TABLET PO SCH (09:00)
[2021-11-04] MEDS ORDERED: PREGABALIN 150 MG PO SCH (09:00)
[2021-11-04] MEDS ORDERED: FOLIC ACID 1 MG TABLET PO SCH (09:00)
[2021-11-04] MEDS ORDERED: PREGABALIN 75 MG CAPSULE PO SCH ×2 (09:00→21:00)
[2021-11-04] MEDS: APIXABAN 2.5 MG TABLET PO SCH ×2 (09:09→19:28)
[2021-11-04] MEDS: CELECOXIB 200 MG CAP PO SCH ×2 (09:10→19:28)
[2021-11-04] MEDS ORDERED: LEVOTHYROXINE 112 MCG TABLET PO SCH (09:32)
[2021-11-04] MEDS ORDERED: LEVOTHYROXINE 25 MCG TABLET PO SCH (09:33)
[2021-11-04 12:00] VITALS: BP 115/52
[2021-11-04] MEDS: LACTATED RINGERS 1000ML 1,000 ML IV SCH (12:56)
[2021-11-04 16:05] VITALS: BP 128/75
[2021-11-04 16:46] LABS: ABG BASE EXCESS 4.1 mmol/L (-2.0-3.0); ABG HCO3 29.2 mmol/L (21.0-28.0); ABG OXYGEN SATURATION 95.3 % (95.0-99.0); ABG PCO2 46 mmHg (35-48)
[2021-11-04] MEDS ORDERED: TAMSULOSIN HCL 0.4 MG CAP.ER.24H ONE (19:25)
[2021-11-04] MEDS ORDERED: ATORVASTATIN 20 MG TABLET ONE (19:26)
[2021-11-04] MEDS ORDERED: LEVOFLOXACIN 500 MG/D5W 100 ML 100 ML ONE (19:26)
[2021-11-04] MEDS ORDERED: LEVOFLOXACIN 500 MG/D5W 100 ML 100 ML IV SCH (19:30)
[2021-11-04] MEDS ORDERED: DiphenhydrAMINE HCL 50 MG/ML VIAL IV PRN (19:30)
[2021-11-04] MEDS ORDERED: LEVOFLOXACIN 500 MG TABLET PO SCH (19:30)
[2021-11-04 20:37] VITALS: BP 102/50
[2021-11-04] MEDS ORDERED: MELATONIN 5 MG PO SCH (21:00)
[2021-11-04] MEDS ORDERED: MELATONIN 5MG PO SCH (21:00)
[2021-11-04] MEDS ORDERED: TAMSULOSIN HCL 0.4 MG CAP.ER.24H PO SCH (21:00)
[2021-11-04] MEDS ORDERED: ATORVASTATIN 20 MG TABLET PO SCH (21:00)
[2021-11-05] MEDS ORDERED: LEVOTHYROXINE 112 MCG TABLET PO SCH (06:30)
[2021-11-07] MEDS ORDERED: THIA500T3 PO ×2 (02:22)
[2021-11-07] MEDS ORDERED: LEVO750T46 PO ×2 (02:22)
[2021-11-07] MEDS ORDERED: PREG75 PO ×2 (02:22)
[2021-11-07] MEDS ORDERED: SPIR25TA6 PO ×2 (02:22)
[2021-11-07] MEDS ORDERED: ATOR10 PO ×2 (02:22)
[2021-11-07] MEDS ORDERED: FERR-72 PO ×2 (02:22)
[2021-11-07] MEDS ORDERED: DULO60CA64 PO ×2 (02:22)
[2021-11-09] MEDS ORDERED: COLC0.6T73 PO ×2 (18:31)
[2021-11-09] MEDS ORDERED: AMOX-426 PO ×2 (18:31)
[2021-11-09] MEDS ORDERED: PRED20TA3 PO ×2 (18:33)
== END 2021-11-04 21:06 ==
LOC: EDH 09:32 → 3AH 15:32 → EDHIP 15:32 → UNDOADMOB 15:32
PROVIDERS: ADMIT Internal Medicine Pulmonary Disease; ATTEND Internal Medicine Pulmonary Disease
DX: M25.552 Pain in left hip (principal); M25.551 Pain in right hip; R53.1 Weakness; D72.829 Elevated white blood cell count, unspecified; I13.0 Hypertensive heart and chronic kidney disease with heart failure and stage 1 through stage 4 chronic kidney disease, or unspecified chronic kidney disease; E11.22 Type 2 diabetes mellitus with diabetic chronic kidney disease; N18.9 Chronic kidney disease, unspecified; I50.9 Heart failure, unspecified; D63.8 Anemia in other chronic diseases classified elsewhere; N17.9 Acute kidney failure, unspecified; E03.9 Hypothyroidism, unspecified; E78.00 Pure hypercholesterolemia, unspecified; I95.9 Hypotension, unspecified; E66.01 Morbid (severe) obesity due to excess calories; R29.6 Repeated falls; W18.30XA Fall on same level, unspecified, initial encounter; Y92.89 Other specified places as the place of occurrence of the external cause; Y93.89 Activity, other specified; Z68.37 Body mass index [BMI] 37.0-37.9, adult; Z79.01 Long term (current) use of anticoagulants; Z88.0 Allergy status to penicillin; Z79.899 Other long term (current) drug therapy; Z86.14 Personal history of Methicillin resistant Staphylococcus aureus infection; Z86.711 Personal history of pulmonary embolism; Z86.718 Personal history of other venous thrombosis and embolism; Z87.891 Personal history of nicotine dependence; Z96.611 Presence of right artificial shoulder joint; Z96.612 Presence of left artificial shoulder joint; Z96.643 Presence of artificial hip joint, bilateral; Z96.652 Presence of left artificial knee joint
CPT/HCPCS: 36415; 36600; 71045; 73521; 80048; 80053; 81001; 82803; 82948; 83605; 83880; 84484; 85025; 87040; 87635; 87804; 93005; 96361; 96365; 97039; C9803; G0378; J1956; J7120

== ENCOUNTER 2021-11-06 21:17 | Observation (INO) | payer OTHER, MEDICARE ==
[~2021-11-06] VITALS: Ht 172.7 cm; Wt 119.4 kg
[~2021-11-06 21:17] MED LIST changes: -HYDR-4457 PO; +LEVO137C4 PO; -PREG150C PO
[2021-11-06] MEDS ORDERED: ACETAMINOPHEN 650 MG SUPPOSITORY RC ONE ×2 (21:39→22:00)
[2021-11-06 21:58] LABS: BASOPHILS % (AUTO) 0.1 % (0.0-5.0); HEMATOCRIT 34.3 % (42-54); LYMPHOCYTES % (AUTO) 11.4 % (21.0-51.0); MEAN CORPUSCULAR HEMOGLOBIN 26.5 pg (27.0-33.0); MEAN CORPUSCULAR HGB CONC 31.5 g/dL (32.0-36.0); MEAN CORPUSCULAR VOLUME 84.1 fL (79-99); MONOCYTES % (AUTO) 14.7 % (3.0-13.0); NEUTROPHILS % (AUTO) 73.3 % (40.0-77.0); PLATELET COUNT (AUTO) 343 K/uL (130-400); RED BLOOD CELL COUNT(AUTO) 4.08 MIL/uL (4.50-6.20); RED CELL DISTRIBUTION WIDTH 17.1 % (11.0-15.5); WHITE BLOOD COUNT (AUTO) 7.3 K/uL (4.8-10.8)
[2021-11-06] MEDS ORDERED: 0.9% NACL 500ML IV.SOLN 500 ML IV ONE (22:00)
[2021-11-06 22:16] LABS: APPEARANCE,URINE CLEAR (CLEAR); BILIRUBIN,URINE NEGATIVE (NEGATIVE); COLOR,URINE YELLOW (YELLOW); GLUCOSE, URINE (UA) NEGATIVE (NEGATIVE); KETONES,URINE NEGATIVE (NEGATIVE); LEUKOCYTE ESTERASE ,URINE NEGATIVE (NEGATIVE); NITRATE,URINE NEGATIVE (NEGATIVE); OCCULT BLOOD,URINE NEGATIVE (NEGATIVE); PH,URINE 8.5 (5.0-8.0); PROTEIN,URINE TRACE mg/dL (NEGATIVE); UROBILINOGEN,URINE >=8.0 mg/dL (0.2-1.0)
[2021-11-06 22:20] LABS: CREATININE 1.6 mg/dL (0.5-1.5); POTASSIUM 3.7 mmol/L (3.5-5.1)
[2021-11-06 22:24] LABS: ALBUMIN 2.2 g/dL (3.5-5.0); TOTAL PROTEIN, SERUM 8.1 g/dL (6.0-8.3)
[2021-11-06 22:27] LABS: BACTERIA,URINE Few /HPF (None Seen); RBC,URINE 0-1 /HPF (0-1)
[2021-11-06] MEDS ORDERED: CEFTRIAXONE 1G VIAL IVP ONE (23:00)
[2021-11-07] MEDS ORDERED: HYDRALAZINE 20MG/ML VIAL IV PRN (01:30)
[2021-11-07] MEDS ORDERED: ONDANSETRON 4MG INJ IVP PRN (01:30)
[2021-11-07] MEDS ORDERED: TEMAZEPAM 15 MG CAPSULE PO PRN (01:30)
[2021-11-07] MEDS ORDERED: 0.9% NACL 500ML IV.SOLN 500 ML IV ONE (01:30)
[2021-11-07] MEDS ORDERED: ACETAMINOPHEN 650 MG SUPPOSITORY RC PRN (01:30)
[2021-11-07] MEDS ORDERED: LABETALOL 20MG SYG IV PRN (01:30)
[2021-11-07] MEDS ORDERED: CLONIDINE HCL 0.1 MG TABLET PO PRN (01:30)
[2021-11-07] MEDS: 0.9%NACL 1000ML 1,000 ML IV SCH ×3 (02:06→17:33)
[2021-11-07] MEDS ORDERED: FERR-72 PO (02:22)
[2021-11-07] MEDS ORDERED: PREG75 PO (02:22)
[2021-11-07] MEDS ORDERED: DULO60CA64 PO (02:22)
[2021-11-07] MEDS ORDERED: THIA500T3 PO (02:22)
[2021-11-07] MEDS ORDERED: ATOR10 PO (02:22)
[2021-11-07] MEDS ORDERED: SPIR25TA6 PO (02:22)
[2021-11-07] MEDS ORDERED: LEVO750T68 PO (02:22)
[2021-11-07 02:40] LABS: CREATININE 1.5 mg/dL (0.5-1.5); POTASSIUM 3.7 mmol/L (3.5-5.1)
[2021-11-07 02:43] LABS: MAGNESIUM 2.1 mg/dL (1.80-2.40); PHOSPHORUS 5.7 mg/dL (2.5-4.9)
[2021-11-07] MEDS: ALBUTEROL 0.083% 2.5 MG/3 ML INH IH PRN ×2 (03:13→06:51)
[2021-11-07] MEDS: HYDROMORPHONE 1 MG INJ IVP PRN (05:02)
[2021-11-07 06:31] LABS: BASOPHILS % (AUTO) 0.4 % (0.0-5.0); EOSINOPHILS % (AUTO) 0.2 % (0.0-8.0); HEMATOCRIT 30.2 % (42-54); LYMPHOCYTES % (AUTO) 12.7 % (21.0-51.0); MEAN CORPUSCULAR HGB CONC 31.5 g/dL (32.0-36.0); MEAN CORPUSCULAR VOLUME 82.7 fL (79-99); MONOCYTES % (AUTO) 17.4 % (3.0-13.0); NEUTROPHILS % (AUTO) 68.7 % (40.0-77.0); PLATELET COUNT (AUTO) 307 K/uL (130-400); RED BLOOD CELL COUNT(AUTO) 3.65 MIL/uL (4.50-6.20); WHITE BLOOD COUNT (AUTO) 8.2 K/uL (4.8-10.8)
[2021-11-07] MEDS: INSULIN HUMULIN R 100 UNIT/ML 3ML SQ SCH ×4 (07:30→21:00)
[2021-11-07] MEDS ORDERED: LEVOTHYROXINE 112 MCG TABLET PO SCH (07:30)
[2021-11-07] MEDS: LEVOTHYROXINE 25 MCG TABLET PO SCH (07:52)
[2021-11-07] MEDS: LEVOTHYROXINE 112 MCG TABLET PO SCH (07:52)
[2021-11-07] MEDS: POLYETHYLENE GLYCOL 3350 17 GM POWD.PACK PO SCH (09:00)
[2021-11-07] MEDS: CEFTRIAXONE 1G VIAL IVP SCH ×2 (09:52→22:15)
[2021-11-07] MEDS: PREGABALIN 75 MG CAPSULE PO SCH ×2 (10:33→22:15)
[2021-11-07] MEDS: SPIRONOLACTONE 25 MG TAB PO SCH (10:33)
[2021-11-07] MEDS: THIAMINE HCL 100 MG TABLET PO SCH (10:33)
[2021-11-07] MEDS: ENOXAPARIN SODIUM 40 MG/0.4 ML SYRINGE SQ SCH (10:34)
[2021-11-07 16:40] LABS: CRP QUANTITATIVE 208.3 mg/L (0.00-9.0)
[2021-11-07 16:52] LABS: B-TYPE NATRIURETIC PEPTIDE 134 pg/mL (0-100)
[2021-11-07 17:24] LABS: ERYTHROCYTE SEDIMENTATION RATE 150 MM/HR (0-20)
[2021-11-07] MEDS: ATORVASTATIN 10 MG TABLET PO SCH (22:15)
[2021-11-07] MEDS: ACETAMINOPHEN 325 MG TAB PO PRN (23:28)
[2021-11-08] VITALS (7 sets, daily range): BP systolic 98–121; BP diastolic 42–76
[2021-11-08] MEDS: HYDROMORPHONE 1 MG INJ IVP PRN
[2021-11-08] MEDS: INSULIN HUMULIN R 100 UNIT/ML 3ML SQ SCH ×4 (07:30→21:00)
[2021-11-08 08:11] LABS: BASOPHILS % (AUTO) 0.3 % (0.0-5.0); EOSINOPHILS % (AUTO) 1.2 % (0.0-8.0); HEMATOCRIT 31.8 % (42-54); LYMPHOCYTES % (AUTO) 16.1 % (21.0-51.0); MEAN CORPUSCULAR HEMOGLOBIN 26.5 pg (27.0-33.0); MEAN CORPUSCULAR HGB CONC 31.4 g/dL (32.0-36.0); MEAN CORPUSCULAR VOLUME 84.1 fL (79-99); MONOCYTES % (AUTO) 18.2 % (3.0-13.0); NEUTROPHILS % (AUTO) 63.4 % (40.0-77.0); PLATELET COUNT (AUTO) 328 K/uL (130-400); RED BLOOD CELL COUNT(AUTO) 3.78 MIL/uL (4.50-6.20); RED CELL DISTRIBUTION WIDTH 17.2 % (11.0-15.5); WHITE BLOOD COUNT (AUTO) 8.6 K/uL (4.8-10.8)
[2021-11-08] MEDS: SPIRONOLACTONE 25 MG TAB PO SCH (08:22)
[2021-11-08] MEDS: THIAMINE HCL 100 MG TABLET PO SCH (08:22)
[2021-11-08] MEDS: LEVOTHYROXINE 25 MCG TABLET PO SCH (08:22)
[2021-11-08] MEDS: PREGABALIN 75 MG CAPSULE PO SCH ×2 (08:22→20:49)
[2021-11-08] MEDS: LEVOTHYROXINE 112 MCG TABLET PO SCH (08:23)
[2021-11-08] MEDS: POLYETHYLENE GLYCOL 3350 17 GM POWD.PACK PO SCH (08:24)
[2021-11-08] MEDS: CEFTRIAXONE 1G VIAL IVP SCH ×2 (08:24→20:49)
[2021-11-08] MEDS: ENOXAPARIN SODIUM 40 MG/0.4 ML SYRINGE SQ SCH (08:24)
[2021-11-08 08:40] LABS: ALBUMIN 2.1 g/dL (3.5-5.0); CREATININE 1.4 mg/dL (0.5-1.5); MAGNESIUM 2.3 mg/dL (1.80-2.40); PHOSPHORUS 3.7 mg/dL (2.5-4.9); POTASSIUM 3.5 mmol/L (3.5-5.1); TOTAL PROTEIN, SERUM 8.1 g/dL (6.0-8.3)
[2021-11-08] MEDS: ACETAMINOPHEN 325 MG TAB PO PRN (12:07)
[2021-11-08] MEDS: 0.9%NACL 1000ML 1,000 ML IV SCH ×2 (17:30→18:18)
[2021-11-08] MEDS ORDERED: HYDROMORPHONE 0.5 MG SYG (0.5MG/0.5ML) ONE (20:39)
[2021-11-08] MEDS: ATORVASTATIN 10 MG TABLET PO SCH (20:50)
[2021-11-09] MEDS ORDERED: HYDROMORPHONE 0.5 MG SYG (0.5MG/0.5ML) ONE (02:36)
[2021-11-09 04:45] VITALS: BP 119/58
[2021-11-09 05:23] LABS: BASOPHILS % (AUTO) 0.3 % (0.0-5.0); EOSINOPHILS % (AUTO) 1.3 % (0.0-8.0); HEMATOCRIT 31.5 % (42-54); LYMPHOCYTES % (AUTO) 15.9 % (21.0-51.0); MEAN CORPUSCULAR HEMOGLOBIN 26.5 pg (27.0-33.0); MEAN CORPUSCULAR HGB CONC 32.1 g/dL (32.0-36.0); MEAN CORPUSCULAR VOLUME 82.7 fL (79-99); MONOCYTES % (AUTO) 17.3 % (3.0-13.0); NEUTROPHILS % (AUTO) 64.6 % (40.0-77.0); PLATELET COUNT (AUTO) 346 K/uL (130-400); RED BLOOD CELL COUNT(AUTO) 3.81 MIL/uL (4.50-6.20); RED CELL DISTRIBUTION WIDTH 17.1 % (11.0-15.5); WHITE BLOOD COUNT (AUTO) 7.9 K/uL (4.8-10.8)
[2021-11-09] MEDS: LEVOTHYROXINE 112 MCG TABLET PO SCH (06:22)
[2021-11-09] MEDS: LEVOTHYROXINE 25 MCG TABLET PO SCH (06:22)
[2021-11-09] MEDS: INSULIN HUMULIN R 100 UNIT/ML 3ML SQ SCH ×4 (06:54→22:33)
[2021-11-09 08:00] VITALS: BP 113/46
[2021-11-09] MEDS: CEFTRIAXONE 1G VIAL IVP SCH ×2 (08:40→21:01)
[2021-11-09] MEDS: PREGABALIN 75 MG CAPSULE PO SCH ×2 (08:40→21:02)
[2021-11-09] MEDS: PREDNISONE 20 MG TABLET PO SCH (08:40)
[2021-11-09] MEDS: THIAMINE HCL 100 MG TABLET PO SCH (08:40)
[2021-11-09] MEDS: POLYETHYLENE GLYCOL 3350 17 GM POWD.PACK PO SCH (08:40)
[2021-11-09] MEDS: COLCHICINE 0.6 MG TABLET PO SCH (08:40)
[2021-11-09] MEDS: SPIRONOLACTONE 25 MG TAB PO SCH (08:44)
[2021-11-09] MEDS: ENOXAPARIN SODIUM 40 MG/0.4 ML SYRINGE SQ SCH (08:45)
[2021-11-09 12:00] VITALS: BP 96/42
[2021-11-09] MEDS: 0.9%NACL 1000ML 1,000 ML IV SCH ×2 (12:30→21:02)
[2021-11-09 16:00] VITALS: BP 115/55
[2021-11-09] MEDS ORDERED: CAMPHOR/MENTHOL/PHENOL 10 GM OINT TP PRN (17:00)
[2021-11-09] MEDS ORDERED: AMOX-426 PO (18:31)
[2021-11-09] MEDS ORDERED: COLC0.6T73 PO (18:31)
[2021-11-09] MEDS ORDERED: PRED20TA3 PO (18:33)
[2021-11-09 20:32] VITALS: BP 121/51
[2021-11-09] MEDS: ATORVASTATIN 10 MG TABLET PO SCH (21:02)
[2021-11-09] MEDS: HYDROMORPHONE 0.5 MG SYG (0.5MG/0.5ML) IVP PRN (22:31)
[2021-11-10 00:25] VITALS: BP 135/66
[2021-11-10 04:18] VITALS: BP 140/71
[2021-11-10] MEDS: INSULIN HUMULIN R 100 UNIT/ML 3ML SQ SCH ×2 (05:54→11:30)
[2021-11-10] MEDS: LEVOTHYROXINE 112 MCG TABLET PO SCH (05:58)
[2021-11-10] MEDS: LEVOTHYROXINE 25 MCG TABLET PO SCH (05:58)
[2021-11-10 09:23] VITALS: BP 103/46
[2021-11-10] MEDS: SPIRONOLACTONE 25 MG TAB PO SCH (10:30)
[2021-11-10] MEDS: THIAMINE HCL 100 MG TABLET PO SCH (10:30)
[2021-11-10] MEDS: PREDNISONE 20 MG TABLET PO SCH (10:30)
[2021-11-10] MEDS: COLCHICINE 0.6 MG TABLET PO SCH (10:31)
[2021-11-10] MEDS: ENOXAPARIN SODIUM 40 MG/0.4 ML SYRINGE SQ SCH (10:31)
[2021-11-10] MEDS: PREGABALIN 75 MG CAPSULE PO SCH (10:31)
[2021-11-10] MEDS: POLYETHYLENE GLYCOL 3350 17 GM POWD.PACK PO SCH (10:32)
[2021-11-10] MEDS: 0.9%NACL 1000ML 1,000 ML IV SCH ×2 (10:32→10:33)
[2021-11-10] MEDS: HYDROMORPHONE 0.5 MG SYG (0.5MG/0.5ML) IVP PRN (10:34)
[2021-11-10 11:00] VITALS: BP 121/47
[2021-11-10] MEDS: CEFTRIAXONE 1G VIAL IVP SCH (13:37)
[2021-11-10 16:00] VITALS: BP 105/54
== END 2021-11-10 17:45 ==
LOC: EDH 21:17 → INTOOBSV 11-07 01:28 → OBSVTOIN 11-07 01:28 → EDHIP 11-07 01:28 → 3CH 11-08 00:20
PROVIDERS: ADMIT Internal Medicine Critical Care Medicine; ATTEND Internal Medicine Critical Care Medicine
DX: A41.9 Sepsis, unspecified organism (principal); Z20.822 Contact with and (suspected) exposure to COVID-19; R65.10 Systemic inflammatory response syndrome (SIRS) of non-infectious origin without acute organ dysfunction; G93.41 Metabolic encephalopathy; I10 Essential (primary) hypertension; D64.9 Anemia, unspecified; E66.01 Morbid (severe) obesity due to excess calories; E78.00 Pure hypercholesterolemia, unspecified; M10.9 Gout, unspecified; J18.9 Pneumonia, unspecified organism; F03.90 Unspecified dementia, unspecified severity, without behavioral disturbance, psychotic disturbance, mood disturbance, and anxiety; R74.02 Elevation of levels of lactic acid dehydrogenase [LDH]; R41.82 Altered mental status, unspecified; Z68.41 Body mass index [BMI] 40.0-44.9, adult; Z79.899 Other long term (current) drug therapy; Z98.890 Other specified postprocedural states; Z88.1 Allergy status to other antibiotic agents
CPT/HCPCS: 99285; 96374; 71045; 87635; 96361 ×7; 84484; 80053 ×2; 82140; 85025 ×4; 87040 ×2; 87880; 87804 ×2; 83605 ×3; 81001; 36415 ×4; 93005; 96375; 96376 ×4; 96372 ×4; 83735 ×3; 84100 ×2; 84550; 80048; 83880; 85651; 87077; 87186; 82948 ×16; 86140; 73560; 84145 ×2; 83615; 85378; 97161; 97039 ×2; 97530; 94640 ×2; 94664; C9803; J7040; J0696 ×8; J1170 ×6; J7030 ×3; J1650 ×4; J1815 ×2; G0378